=== PATIENT | male | born 1975 | race Two or more races ===

== ENCOUNTER 2024-10-18 12:44 | Outpatient (AMB) | payer OTHER, SELFPAY ==
--- NOTE | 2024-10-18 12:52 | MHC.PC.OV ---
Vital Signs 10/18/24 12:55 Height 5 ft 5.35 in Weight 161 lb 8 oz BMI 26.6 BP 100/62 Blood Pressure Location Lt brachial Position Sitting Pulse 79 Pulse Source Pulse Oximeter Temp 97.3 F Temp Source Temporal Artery Scan Pulse Oximetry (%) 97 Oxygen Delivery Method Room Air Intake Visit Reasons: establish care Intake Note: Patient is a new patient here to establish care for Wellness visit. Transferring care from [facility]. Medical records have been requested and have not received. Outdoor Adventure Guides Required: No Career Technical Counselor: Not Required per policy Accompanied by: Self / Same As Patient Allergies No Known Allergies Allergy (Verified 10/18/24 13:06) Medication List - Last Reconciled 10/18/24 by LOUISE Ayers No Known Home Meds Tobacco use date assessed: 10/18/24 Dental Screening Dental Screen Date: 10/18/24 Did you have a dental visit in the last 12 months?: Yes Did you have a dental problem in the last 6 months where you did not have access to dental care?: No Was dental information given to patient?: Patient has dentist HPI establish care HPI Details Previous PCP: [facility] Last visit:More than five years Last PE: Same Specialist:no OBGYN:n/a Past medical history: UTI, hemmorhoids Medications:n/a Family HX: n/a Problem: The patient is a 49-year-old male presenting for health maintenance with concerns of a urinary tract infection, hemorrhoids, and kidney stones. The patient became aware of a urinary tract infection following a DOT medical assessment. Despite completing a prescribed course of medication, he still experiences a strong urine odor, particularly when holding urine for a long duration. 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 He has a long-standing history of hemorrhoids, which he associates with his driving duties and occasional constipation. The condition has led to discomfort and minor bleeding upon excessive wiping. Lifestyle choices, such as a preference for rice, have contributed to constipation, though he attempts to counter this with increased water and fiber intake. A history of kidney stones involving a lithotripsy procedure was noted. The patient acknowledged consuming inadequate water, sometimes drinking Coca-Cola instead, contributing to the recurrence of kidney stones. PFSH Medical History (Updated 10/23/24 @ 15:23 by LOUISE Ayers) Hemorrhoids UTI (urinary tract infection) Surgical History (Updated 10/18/24 @ 13:01 by CARMITA Tanner) History of lithotripsy History of tooth extraction Family History Other Mental health disorder Social History Housing: Apartment Alcohol intake: current Alcohol intake frequency: a few times a month Patient Tobacco Use Status: Never used Tobacco e-Cigarette/Vaping Use: Never Used Second Hand Smoke Exposure: No Substance Use Type: Marijuana service: No Current occupational status: employed Cognitive needs: No Hearing needs: No Vision needs: Yes (Glasses) Questionnaire PHQ-9 Over the last 2 weeks, how often have you been bothered by any of the following problems? 1. Little interest or pleasure in doing things: not at all 2. Feeling down, depressed, or hopeless: more than half the days 3. Trouble falling or staying asleep, or sleeping too much: several days 4. Feeling tired or having little energy: more than half the days 5. Poor appetite or overeating: several days 6. Feeling bad about yourself - or that you are a failure or have let yourself or your family down: several days 7. Trouble concentrating on things, such as reading the newspaper or watching television: several days 8. Moving or speaking so slowly that other people could have noticed. Or the opposite - being so fidgety or restless that you have been moving around a lot more than usual: not at all 9. Thoughts that you would be better off or of hurting yourself in some way: not at all Total score: 8 Depression Screening Interpretation: Positive Depression Screening Done: Yes 03065 - PHQ-9 Billing: Yes Source: Developed by Drs. Jamar Frazier, Peggy Fowler, Luciano Mitchell and colleagues, with an educational vianey from [email or web address]. Thrive Questionnaire Date Thrive assessed: 10/16/24 I am a: Patient What is your living situation today?: I have a steady place to live Within the past 12 months, did the food you bought not last and you didn't have the money to get more?: Often true Within the past 12 months, did you worry whether your food would run out before you got money to buy more?: Sometimes True Do you have trouble paying for medicines?: No Do you have trouble getting transportation to medical appointments?: No Do you have trouble paying your heating and electricity bill?: No Do you have trouble taking care of your child, family member or friend?: No Do you have trouble with day-to-day activities such as bathing, preparing meals, shopping, managing finances, etc.?: No Are you currently unemployed and looking for a job?: No Are you interested in more education?: No Please select the resources that you would like help with: None Currently or been in a relationship where the following occur: I choose not to answer THRIVE Score: 2 AUDIT C Alcohol Use Questionnaire (AUDIT-C) 1. How often do you have a drink containing alcohol?: 2-4 times a month 2. How many drinks containing alcohol do you have on a typical day when you are drinking?: 3 or 4 3. How often do you have six or more drinks on one occasion?: Never Total Score: 3 KINGSLEY-7 AMB Questionnaire KINGSLEY-7 Date KINGSLEY - 7 assessed: 10/18/24 Feeling nervous, anxious, or on edge: 1 = Several days Not being able to stop or control worryin = Several days Worrying too much about different things: 1 = Several days Trouble relaxin = Several days Being so restless that it is hard to sit still: 1 = Several days Becoming easily annoyed or irritable: 1 = Several days Feeling afraid as if something awful might happen: 1 = Several days Total KINGSLEY-7 score (0-4 normal; 5-9 mild; 10-14 moderate; 15-21 severe): 7 Source: Developed by Drs. Jamar Frazier, Peggy Fowler, Luciano Mitchell and colleagues, with an educational vianey from [employer]. KINGSLEY-7 Assessment Billing KINGSLEY-7 Assessment Tool: KINGSLEY-7 Assessment 69988 Review of Systems Const Denies headache(s) Eyes Denies loss of vision ENT Denies vertigo, Denies dizziness, Denies headache(s) and Denies sore throat Card Denies chest pain, Denies leg edema and Denies lightheadedness Resp Denies cough, Denies hemoptysis and Denies wheezing GI Denies abdominal pain, Denies melena, Reports constipation, Denies diarrhea, Denies vomiting and Reports other (Recurrent hemorrhoids) Denies dysuria, Denies urinary frequency, Denies urinary urgency and Reports other (Strong odor) Musc Denies arthralgias, Denies joint swelling, Denies numbness and Denies tingling Neuro Denies Abnormal speech present, Denies behavioral changes, Denies vertigo, Denies dizziness, Denies headache(s), Denies loss of vision, Denies memory loss, Denies numbness and Denies tingling Psych Denies anxiety, Denies behavioral changes, Denies depression, Denies memory loss and Denies panic attacks Gasper/Lymph Denies easy bleeding and Denies easy bruising Aller/Immun Denies wheezing Physical exam (Primary Care) Vital Signs: Last Vital Signs Temp 97.3 F 10/18/24 12:55 Pulse 79 10/18/24 12:55 BP 100/62 10/18/24 12:55 Pulse Ox 97 10/18/24 12:55 Oxygen Delivery Method Room Air 10/18/24 12:55 BMI result Body Mass Index 26.6 Tobacco/Smoking Status: Tobacco use Status Tobacco use date assessed 10/18/24 10/18/24 13:03 Patient Tobacco Use Status Never used Tobacco 10/18/24 13:03 e-Cigarette/Vaping Use Never Used 10/18/24 13:03 PHQ-9: PHQ-9 Score PHQ-9: Total score 8 10/18/24 13:15 Depression Screening Interpretation: Positive Thrive Assessment: Date of Thrive Assessment Date Thrive assessed 10/16/24 10/18/24 13:03 Currently or been in a relationship where the following occur: I choose not to answer Const General: healthy appearing, no acute distress, alert and awake Nutritional Appearance: well nourished Orientation/consciousness: oriented to person, oriented to place and oriented to time HENMT Ears: TM's normal bilaterally General nose exam: Normal nasal mucous membranes and turbinates present Eyes Conjunctivae: conjunctivae normal Sclerae: sclerae normal Pupils: Equal, round and reactive pupils present Neck Neck: Yes no lymphadenopathy and Yes no JVD Thyroid: Thyroid normal Carotids: no bruits Resp Effort & Inspection: normal respiratory effort and not tachypneic Auscultation: no crackles, no rales, no rhonchi and no wheezes Cardio Rate: regular rate Rhythm: regular rhythm Heart sounds: no murmurs and normal S1 and S2 GI Palpation (GI): Soft to palpation, nontender, no hepatomegaly and no splenomegaly Auscultation: normal bowel sounds Skin General skin exam: no rashes or lesions noted and dry skin Neuro General: oriented to person, oriented to place and oriented to time Cranial nerves: Yes Equal, round and reactive pupils present Speech: No Abnormal speech present Gait exam (Neuro): Normal gait present Motor exam (neuro): no tremor noted Extrem Right upper extremity: full ROM Left upper extremity: full ROM Right lower extremity: full ROM; no edema Left lower extremity: full ROM; no edema Psych Mental Status: mental status grossly normal Speech and movement: Normal speech and movement present Affect: normal affect Attitude: cooperative Thought process: Normal thought process present Coding Level of Care Code New Pt Level 4 (06005) Diagnoses Hemorrhoids, unspecified hemorrhoid type K64.9 Hemorrhoid type: unspecified Urinary tract infection with hematuria, site unspecified N39.0; R31.9 Urinary tract infection type: site unspecified Hematuria presence: with hematuria Abnormal urine odor R82.90 Constipation, unspecified constipation type K59.00 Constipation type: unspecified constipation type Encounter for colorectal cancer screening Z12.11; Z12.12 Additional Codes PHQ-9 - 88482 - PHQ-9 Billing: Yes ([id number]) KINGSLEY-7 Assessment Billing - KINGSLEY-7 Assessment Tool: KINGSLEY-7 Assessment 38471 ([id number]) Time Spent (min) 38 Assessment & Plan Assessment & Plan (1) Hemorrhoids: Code(s): K64.9 - Unspecified hemorrhoids Category: Medical Qualifiers: Hemorrhoid type: unspecified Qualified Code(s): K64.9 - Unspecified hemorrhoids (2) UTI (urinary tract infection): Code(s): N39.0 - Urinary tract infection, site not specified Category: Medical Qualifiers: Urinary tract infection type: site unspecified Hematuria presence: with hematuria Qualified Code(s): N39.0 - Urinary tract infection, site not specified; R31.9 - Hematuria, unspecified (3) Abnormal urine odor: Code(s): R82.90 - Unspecified abnormal findings in urine Category: Medical (4) Constipation: Code(s): K59.00 - Constipation, unspecified Category: Medical Qualifiers: Constipation type: unspecified constipation type Qualified Code(s): K59.00 - Constipation, unspecified (5) Encounter for colorectal cancer screening: Code(s): Z12.11 - Encounter for screening for malignant neoplasm of colon; Z12.12 - Encounter for screening for malignant neoplasm of rectum Category: Medical Plan Our plan for this visit is centered around managing the patient's constipation, hemorrhoids, and kidney health. To confirm the resolution of the urinary infection, a urine analysis will be conducted. I've advised the patient on maintaining proper hydration and avoiding delaying urination to prevent future infections. Managing the hemorrhoids will involve encouraging an increase in water consumption and dietary fiber, alongside using topical treatments as needed to manage symptoms. I discussed the associated risks of high-sugar and caffeinated beverages and advised against regular Coca-Cola consumption to diminish any further risk of kidney stones. For colorectal health evaluation, I placed a referral for a colonoscopy. Progress will be reviewed in six weeks with lab results and reassessment of the current health strategies. Patient was informed and verbally consented to the use of an ambient scribe for clinic note documentation during this visit. Orders: Orders Comprehensive [place]. Panel Fast Today Z00.00 - Encounter for general adult medical examination without abnormal findings TSH reflex Free T4 Today Z00.00 - Encounter for general adult medical examination without abnormal findings UA CC w/rflx Micro + Cult Today Z00.00 - Encounter for general adult medical examination without abnormal findings Vitamin D 25-OH Total Today Z00.00 - Encounter for general adult medical examination without abnormal findings Complete Blood Count Auto Diff Today Z00.00 - Encounter for general adult medical examination without abnormal findings Lipid Panel Today Z00.00 - Encounter for general adult medical examination without abnormal findings Glucose Fasting Today Z00.00 - Encounter for general adult medical examination without abnormal findings Referrals Gastroenterology Referral K59.00 - Constipation, unspecified, K64.9 - Unspecified hemorrhoids, Z12.11 - Encounter for screening for malignant neoplasm of colon, Z12.12 - Encounter for screening for malignant neoplasm of rectum
[2024-10-18 12:55] VITALS: BP 100/62; PULSE 79; TEMP 36.3; O2SAT 97; BMI 26.6
--- OUTSIDE RECORDS SUMMARY | 2024-10-18 12:57 | XMS_ITS | Clinical Summary ---
Author Organization [facility] ity Address [address] [place] [address] Care Team Providers Care Corporate Pilot Name Role Phone Unavailable Primary Care Provider Unavailabl e Social History Tobacco Use Types Packs/Day Years Used Date Smoking Tobacco: Never Assessed Sex and Gender Information Value Date Recorded Sex Assigned at Not on file Legal Sex Male 8:16 PM EST Gender Identity Not on file Sexual Orientation Not on file Plan of Treatment Health Maintenance Due Date Last Done Comments DTaP,Tdap,and Td Vaccines (1 - Tdap) 1995 Hepatitis B Vaccines (1 of 3 - 19+ 3-dose series) 1995 Cholesterol Screening (Lipid Panel) 06/26/2023 Colorectal Cancer Screening: Colonoscopy 06/26/2023 Depression Screening 06/26/2023 HIV Screening 06/26/2023 Hepatitis C Screening 06/26/2023 Social Influencers of Health Screening 06/26/2023 COVID-19 Vaccine (2023-2 5 season) 2024 Influenza Vaccine (Season Ended) 2025 HIB Vaccines Aged Out No longer eligi ble based on patient's age to complete this topic HPV Vaccines Aged Out No longer eligi ble based on patient's age to complete this topic Hepatitis A Vaccines Aged Out No long er eligible based on patient's age to complete this topic IPV Vaccines Aged Out No longer eligi ble based on patient's age to complete this topic MMR Vaccines Aged Out No longer eligi ble based on patient's age to complete this topic Meningococcal ACWY Vaccine Aged Out N o longer eligible based on patient's age to complete this topic Meningococcal B Vaccine Aged Out No l onger eligible based on patient's age to complete this topic Pneumococcal Vaccine: Pediat rics (0 to 5 Years) and At-Risk Patients (6 to 64 Years) Aged Out No longer eligible b ased on patient's age to complete this topic RSV Immunization Patients Un vipul 20 months Aged Out No longer eligible b ased on patient's age to complete this topic Varicella Vaccines Aged Out No longer eligible based on patient's age to complete this topic
== END 2024-10-18 13:40 | disposition home or self-care (01) ==
LOC: HO.HMCH 12:45
DX: K64.9 Unspecified hemorrhoids (principal); N39.0 Urinary tract infection, site not specified; R31.9 Hematuria, unspecified; R82.90 Unspecified abnormal findings in urine; K59.00 Constipation, unspecified; Z12.11 Encounter for screening for malignant neoplasm of colon; Z12.12 Encounter for screening for malignant neoplasm of rectum

== ENCOUNTER → 2024-10-18 12:44 | Outpatient (BNVA) | payer OTHER, SELFPAY | DX: Z76.89 Persons encountering health services in other specified circumstances (principal); K64.9 Unspecified hemorrhoids; N39.0 Urinary tract infection, site not specified; R31.9 Hematuria, unspecified; R82.90 Unspecified abnormal findings in urine; K59.00 Constipation, unspecified | CPT/HCPCS: 96127; 99202 ==

== ENCOUNTER 2024-10-23 08:37 | Outpatient (REF) | payer OTHER, SELFPAY ==
[2024-10-23 08:57] LABS: MANUAL DIFF FLAG NO
[2024-10-23 09:14] LABS: Basophils Absolute Auto 0.1 X10*3/uL (0.0-0.2); Basophils Percent Auto 0.9 % (0-2); Eosinophils Absolute Auto 0.2 X10*3/uL (0.0-0.4); Eosinophils Percent Auto 2.3 % (0-4); Hemoglobin 15.1 g/dl (14.0-18.0); Imm Gran Abs Auto 0.07 X10*3/uL (0.00-0.03); Lymphocytes Absolute Auto 2.3 X10*3/uL (1.2-4.9); Mean Corpuscular HGB Conc 33.6 g/dl (31.0-36.0); Mean Corpuscular Hemoglobin 28.8 pg (27.0-33.0); Mean Corpuscular Volume 85.9 fL (80.0-98.0); Mean Platelet Volume 9.3 fL (9.4-12.4); Monocytes Absolute Auto 0.5 X10*3/uL (0.1-1.2); Monocytes Percent Auto 7.3 % (2-11); Neutrophils Absolute Auto 3.9 x10*3/uL (2.0-8.3); Neutrophils Percent Auto 55.5 % (45-73); Platelet Count 314 X10*3/uL (160-400); Red Blood Count 5.24 X10*6/uL (4.60-5.80); Red Cell Distribution Width 13.4 % (11.0-16.0)
[2024-10-23 09:16] LABS: Appearance Urine Clear; Color Urine Yellow; Glucose Urine UA Negative (Negative); Leukocyte Esterase Urine Moderate (2+) (Negative); Nitrite Urine Positive (Negative); UMIC TRIGGER UACC YES; Urine Blood Negative (Negative); Urine Ketones Negative (Negative); Urine Protein Negative (Neg-Trace)
[2024-10-23 09:18] LABS: Bacteria Urine 2+ (None Seen); Hyaline Casts Urine 0-2 /LPF (0-2); RBC Urine 0-2 /HPF (0-2); Squamous Epithelial Cell Urine 0-2 /HPF (0-2); UACC Culture Trigger YES; WBC Urine 21-50 /HPF (0-5)
[2024-10-23 09:47] LABS: Alanine Aminotransferase 55 U/L (0-40); Albumin Level 4.6 g/dL (3.5-5.0); Alkaline Phosphatase 61 U/L (39-117); Anion Gap 11 (12-20); Aspartate Amino Transferase 26 U/L (5-37); Bilirubin Total 1.2 mg/dL (0.0-1.0); Blood Urea Nitrogen 13 mg/dL (9-16); Calcium 9.6 mg/dL (8.4-10.2); Carbon Dioxide 27 mmol/L (22-29); Chloride 106 mmol/L (96-108); Cholesterol 180 mg/dL (<200); Estimated Glomerular Filt Rate > 60; Glucose Fasting 109 mg/dL (60-99); HDL Cholesterol 45 mg/dL (>40); LDL Cholesterol Calculated 117 mg/dL (<100); Potassium 4.2 mmol/L (3.3-5.1); Sodium 140 mmol/L (135-145); Total Protein 7.5 g/dL (6.5-8.0); Triglycerides 93 mg/dL (<150)
[2024-10-23 10:02] LABS: TSH reflex Free T4 2.34 uIU/mL (0.32-4.0); Vitamin D 25-OH Total 32.2 ng/mL (>30)
== END 2024-10-23 08:38 | disposition home or self-care (01) ==
LOC: HO.LAB 08:37
DX: Z00.00 Encounter for general adult medical examination without abnormal findings (principal)
CPT/HCPCS: 36415; 80053; 80061; 81001; 82306; 84443; 85025; 87086; 87088; 87186

== ENCOUNTER 2024-11-29 08:22 | Outpatient (AMB) | payer OTHER, SELFPAY ==
--- NOTE | 2024-11-29 08:23 | A.OFFPC_ITS ---
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: No Accompanied by: Self / Same As Patient Allergies No Known Allergies Allergy (Verified 11/29/24 08:45) Medication List - Last Reconciled 11/29/24 by LOUISE Ayers nitrofurantoin monohyd/m-cryst 100 mg (Macrobid) 100 mg PO BID 10 days Tobacco use date assessed: 11/29/24 Dental Screening Dental Screen Date: 11/29/24 Did you have a dental visit in the last 12 months?: Yes Did you have a dental problem in the last 6 months where you did not have access to dental care?: No Was dental information given to patient?: Patient has dentist HPI annual physical/lab review HPI Details Dentist: up to date Eye: due for this year Snellen: Right: Left: Corrected vision: yes, glasses STI screening: Colonoscopy: appointment for March will mention to them about his heartburn Pap Smear:n/a PHQ-9: Flu: declines COVID: reports that he did not get any of the covid vaccines Tdap:He is not sure if he got this done or when he had it completed Diet:regular Exercise:he does not workout, reports that he is supposed to start, but not yet reports that he was diagnosed with oral cancer about 4 or 5 years and was being followed [facility] oncology he was told that his cancer was deadly with a 6 month survival rate patient reports that he has not followed up and he just wants to make sure that everything is ok states that he is feeling fine. He doesn't have any oral pain. No lump to the area noted on exam No lymph node left during exam. Will obtain the records and see what was the recommendations and advise reports that he is having burning sensation with he does not eat for awhile reports that he eat greasy foods he gets it as well he only had coffee this morning he is eating close to bedtime occasional alcohol intake 1-2 beers [facility] Medical History (Updated 11/29/24 @ 12:34 by LOUISE Ayers) Hemorrhoids UTI (urinary tract infection) Surgical History History of lithotripsy History of tooth extraction Family History Other Mental health disorder Social History Housing: Apartment Alcohol intake: current Alcohol intake frequency: a few times a month Patient Tobacco Use Status: Never used Tobacco e-Cigarette/Vaping Use: Never Used Second Hand Smoke Exposure: No Substance Use Type: Marijuana service: No Current occupational status: employed Cognitive needs: No Hearing needs: No Vision needs: Yes (Glasses) Questionnaire PHQ-9 Over the last 2 weeks, how often have you been bothered by any of the following problems? 1. Little interest or pleasure in doing things: not at all 2. Feeling down, depressed, or hopeless: more than half the days 3. Trouble falling or staying asleep, or sleeping too much: several days 4. Feeling tired or having little energy: more than half the days 5. Poor appetite or overeating: several days 6. Feeling bad about yourself - or that you are a failure or have let yourself or your family down: several days 7. Trouble concentrating on things, such as reading the newspaper or watching te levision: several days 8. Moving or speaking so slowly that other people could have noticed. Or the opposite - being so fidgety or restless that you have been moving around a lot more than usual: not at all 9. Thoughts that you would be better off or of hurting yourself in some way: not at all Total score: 8 Depression Screening Interpretation: Positive Depression Screening Done: Yes Source: Developed by Drs. Jamar Frazier, Peggy Fowler, Luciano Mitchell and colleagues, with an educational vianey from [employer]. Thrive Questionnaire Date Thrive assessed: 11/29/24 I am a: Patient What is your living situation today?: I have a steady place to live Within the past 12 months, did the food you bought not last and you didn't have the money to get more?: Often true Within the past 12 months, did you worry whether your food would run out before you got money to buy more?: Sometimes True Do you have trouble paying for medicines?: No Do you have trouble getting transportation to medical appointments?: No Do you have trouble paying your heating and electricity bill?: No Do you have trouble taking care of your child, family member or friend?: No Do you have trouble with day-to-day activities such as bathing, preparing meals, shopping, managing finances, etc.?: No Are you currently unemployed and looking for a job?: No Are you interested in more education?: No Please select the resources that you would like help with: None Currently or been in a relationship where the following occur: I choose not to answer THRIVE Score: 2 AUDIT C Alcohol Use Questionnaire (AUDIT-C) 1. How often do you have a drink containing alcohol?: 2-4 times a month 2. How many drinks containing alcohol do you have on a typical day when you are drinking?: 3 or 4 3. How often do you have six or more drinks on one occasion?: Never Total Score: 3 KINGSLEY-7 AMB Questionnaire KINGSLEY-7 Date KINGSLEY - 7 assessed: 11/29/24 Feeling nervous, anxious, or on edge: 1 = Several days Not being able to stop or control worryin = Several days Worrying too much about different things: 1 = Several days Trouble relaxin = Several days Being so restless that it is hard to sit still: 1 = Several days Becoming easily annoyed or irritable: 1 = Several days Feeling afraid as if something awful might happen: 1 = Several days Total KINGSLEY-7 score (0-4 normal; 5-9 mild; 10-14 moderate; 15-21 severe): 7 Source: Developed by Drs. Jamar Frazier, Peggy Fowler, Luciano Mitchell and colleagues, with an educational vianey from [employer]. Review of Systems Const Denies headache(s) Eyes Denies loss of vision ENT Denies vertigo, Denies dizziness, Denies headache(s), Denies sore throat and Reports other (hx of oral cancer) Card Denies chest pain, Denies leg edema and Denies lightheadedness Resp Denies cough, Denies hemoptysis and Denies wheezing GI Denies abdominal pain, Denies melena, Reports constipation (has been improving), Reports heartburn (depending on what he eats), Denies diarrhea and Denies vomiting Denies dysuria, Denies urinary frequency and Denies urinary urgency Musc Denies arthralgias, Denies joint swelling, Denies numbness and Denies tingling Neuro Denies Abnormal speech present, Denies behavioral changes, Denies vertigo, Denies dizziness, Denies headache(s), Denies loss of vision, Denies memory loss, Denies numbness and Denies tingling Psych Denies anxiety, Denies behavioral changes, Denies depression, Denies memory loss and Denies panic attacks Gasper/Lymph Denies easy bleeding and Denies easy bruising Aller/Immun Denies wheezing Physical exam (Primary Care) Vital Signs: Last Vital Signs Temp 98.6 F 11/29/24 08:32 Pulse 62 11/29/24 08:32 Resp 16 11/29/24 08:32 BP 100/64 11/29/24 08:32 Pulse Ox 97 11/29/24 08:32 Oxygen Delivery Method Room Air 11/29/24 08:32 BMI result Body Mass Index 26.9 Tobacco/Smoking Status: Tobacco use Status Tobacco use date assessed 11/29/24 11/29/24 08:40 Patient Tobacco Use Status Never used Tobacco 11/29/24 08:27 e-Cigarette/Vaping Use Never Used 11/29/24 08:27 PHQ-9: PHQ-9 Score PHQ-9: Total score 8 11/29/24 12:41 Depression Screening Interpretation: Positive Thrive Assessment: Date of Thrive Assessment Date Thrive assessed 11/29/24 11/29/24 08:40 Currently or been in a relationship where the following occur: I choose not to answer Const General: healthy appearing, no acute distress, alert and awake Nutritional Appearance: well nourished Orientation/consciousness: oriented to person, oriented to place and oriented to time HENMT Ears: TM's normal bilaterally General nose exam: Normal nasal mucous membranes and turbinates present Mouth: Normal oral and palatal mucosa present Teeth and gingiva: dentition normal Throat: Yes posterior oropharynx normal Eyes Conjunctivae: conjunctivae normal Sclerae: sclerae normal Pupils: Equal, round and reactive pupils present Neck Neck: Yes no lymphadenopathy and Yes no JVD Thyroid: Thyroid normal Carotids: no bruits Resp Effort & Inspection: normal respiratory effort and not tachypneic Auscultation: no crackles, no rales, no rhonchi and no wheezes Cardio Rate: regular rate Rhythm: regular rhythm Heart sounds: no murmurs and normal S1 and S2 GI Palpation (GI): Soft to palpation, nontender, no hepatomegaly and no splenomegaly Auscultation: normal bowel sounds General: Yes no CVA tenderness Back/Spine/Pelvis Back: no CVA tenderness Skin General skin exam: no rashes or lesions noted and dry skin Neuro General: oriented to person, oriented to place and oriented to time Cranial nerves: Yes CN's II-XII intact bilaterally and Yes Equal, round and reactive pupils present Speech: No Abnormal speech present Gait exam (Neuro): Normal gait present Motor exam (neuro): no tremor noted Deep tendon reflexes (DTR's): Right triceps reflex intensity grade: 2+, Left triceps reflex intensity grade: 2+, Rt Biceps (C5, C6): 2+, Left biceps reflex intensity grade: 2+, Right brachioradialis reflex intensity grade: 2+, Left brachioradialis reflex intensity grade: 2+, Right patellar reflex intensity grade: 2+ and Left patellar reflex intensity grade: 2+ Extrem Right upper extremity: full ROM Left upper extremity: full ROM Right lower extremity: full ROM; no edema Left lower extremity: full ROM; no edema Psych Mental Status: mental status grossly normal Speech and movement: Normal speech and movement present Affect: normal affect Attitude: cooperative Thought process: Normal thought process present Results Reviewed Results Reviewed: Laboratory Tests 10/23/24 10/23/24 08:52 08:55 WBC 7.0 RBC 5.24 Hgb 15.1 Hct 45.0 MCV 85.9 MCH 28.8 MCHC 33.6 RDW 13.4 Plt Count 314 MPV 9.3 L Immature Gran % (Auto) 1.0 H Neut % (Auto) 55.5 Lymph % (Auto) 33.0 Sodium 140 Potassium 4.2 Chloride 106 Carbon Dioxide 27 Anion Gap 11 L BUN 13 Creatinine 1.06 Estimated GFR > 60 Fasting Glucose 109 H Calcium 9.6 Total Bilirubin 1.2 H AST 26 ALT 55 H Alkaline Phosphatase 61 Total Protein 7.5 Albumin 4.6 Triglycerides 93 Cholesterol 180 LDL Cholesterol, Calc 117 H HDL Cholesterol 45 25-OH Vitamin D Total 32.2 TSH 2.34 Urine Color Yellow Urine Appearance Clear Urine pH 6.0 Ur Specific [place] 1.020 Urine Protein Negative Urine Glucose (UA) Negative Urine Ketones Negative Urine Blood Negative Urine Nitrite Positive H Ur Leukocyte Esterase Moderate (2+) H Urine RBC 0-2 Urine WBC 21-50 H Ur Squamous Epith Cells 0-2 Urine Bacteria 2+ Hyaline Casts 0-2 Coding Level of Care Code Est Pt Prev Care 40-64y(92771) Diagnoses Annual physical exam Z00.00 Constipation, unspecified constipation type K59.00 Constipation type: unspecified constipation type Hemorrhoids, unspecified hemorrhoid type K64.9 Hemorrhoid type: unspecified Elevated ALT measurement R74.01 Impaired fasting glucose R73.01 Pure hypercholesterolemia E78.00 H/O oral cancer Z85.819 Time Spent (min) 38 Assessment & Plan Assessment & Plan (1) Annual physical exam: Code(s): Z00.00 - Encounter for general adult medical examination without abnormal findings Category: Medical Plan: Preventative guidelines and recent labs reviewed with the patient. He has an upcoming appointment with Gastroenterology. At that appointment he will be discussing colonoscopy along with a possibly EGD due to his recurrent heartburn. The patient does not routinely takes vaccinations and is not interested in be ing vaccinated. (2) Constipation: Code(s): K59.00 - Constipation, unspecified Category: Medical Qualifiers: Constipation type: unspecified constipation type Qualified Code(s): K59.00 - Constipation, unspecified Plan: Recurrent constipation. Reports that this has improved some. He declines MiraLax being added to his regimen,but will increase fluid intake. No abdominal pain on exam. (3) Hemorrhoids: Code(s): K64.9 - Unspecified hemorrhoids Category: Medical Qualifiers: Hemorrhoid type: unspecified Qualified Code(s): K64.9 - Unspecified hemorrhoids Plan: Patient has a history of hemorrhoids. Intermittent rectal bleeding with straining. Patient has a pending GI appointment. Avoid sitting on toilet for an extended period of time. Avoid constipation. Increase fluids and fiber intake. (4) Elevated ALT measurement: Code(s): R74.01 - Elevation of levels of liver transaminase levels Category: Medical Plan: ALT slightly elevated at 55. Limit alcohol/Tylenol use. Encouraged low-calorie diet/exercise/ lose weight (5) Impaired fasting glucose: Code(s): R73.01 - Impaired fasting glucose Category: Medical Plan: Fasting glucose 109 Reinforced low sugar/carbohydrate diet We will recheck blood work in six-month (6) Pure hypercholesterolemia: Code(s): E78.00 - Pure hypercholesterolemia, unspecified Category: Medical Plan: Triglycerides 93, total cholesterol 180, LDL 117, HDL 45 Reinforced low-cholesterol diet Encouraged fish oil or coQ10 supplements We will recheck in six-month (7) H/O oral cancer: Code(s): Z85.819 - Personal history of malignant neoplasm of unspecified site of lip, oral cavity, and pharynx Category: Medical Plan: Patient reports a history of oral cancer. Reports that this was diagnosed roughly about 5 years ago. The lump/mass was removed b removed but it did not received chemotherapy. The patient was following up with [facility] On[facility] and he has stopped going. Reports that he was told that his oral cancer was an aggressive type with a survivor rate of six-month. Reports that he was not concerned because because he has been he has been doing well doing without any issues. However, he would like to look into this to make sure everything is still okay. No lymph node noted on exam. No regrowth of mass noted. We will obtain the record for his oral cancer and see what the recommendations were and advise Plan Patient to follow up in six-month Orders: Orders Lipid Panel 6 Months E78.00 - Pure hypercholesterolemia, unspecified, R73.01 - Impaired fasting glucose, R74.01 - Elevation of levels of liver transaminase levels Comprehensive [place]. Panel Fast 6 Months E78.00 - Pure hypercholesterolemia, unspecified, R73.01 - Impaired fasting glucose, R74.01 - Elevation of levels of liver transaminase levels UA CC w/rflx Micro + Cult 6 Months E78.00 - Pure hypercholesterolemia, unspecified, R73.01 - Impaired fasting glucose, R74.01 - Elevation of levels of liver transaminase levels Hemoglobin A1c 6 Months E78.00 - Pure hypercholesterolemia, unspecified, R73.01 - Impaired fasting glucose, R74.01 - Elevation of levels of liver transaminase levels
--- OUTSIDE RECORDS SUMMARY | 2024-11-29 08:29 | XMS_ITS | Clinical Summary ---
Author Organization [facility] ity Address [address] [place] [address] Care Team Providers Care Emergency Nurse Name Role Phone Unavailable Primary Care Provider [...]
[2024-11-29 08:32] VITALS: BP 100/64; PULSE 62; RESP 16; TEMP 37; O2SAT 97; BMI 26.9
== END 2024-11-29 09:19 | disposition home or self-care (01) ==
LOC: HO.HMCH 08:22
DX: Z00.00 Encounter for general adult medical examination without abnormal findings (principal); K59.00 Constipation, unspecified; K64.9 Unspecified hemorrhoids; R74.01 Elevation of levels of liver transaminase levels; R73.01 Impaired fasting glucose; E78.00 Pure hypercholesterolemia, unspecified; Z85.819 Personal history of malignant neoplasm of unspecified site of lip, oral cavity, and pharynx

== ENCOUNTER → 2024-11-29 08:22 | Outpatient (BNVA) | payer OTHER, SELFPAY | DX: Z00.00 Encounter for general adult medical examination without abnormal findings (principal); K59.00 Constipation, unspecified; K64.9 Unspecified hemorrhoids; R74.01 Elevation of levels of liver transaminase levels; R73.01 Impaired fasting glucose; E78.00 Pure hypercholesterolemia, unspecified; Z85.819 Personal history of malignant neoplasm of unspecified site of lip, oral cavity, and pharynx | CPT/HCPCS: 99396 ==

== ENCOUNTER 2025-02-09 09:03 | Outpatient (REF) | payer OTHER, SELFPAY | END 2025-02-09 09:04 | disposition home or self-care (01) | LOC: HO.LAB 09:03 | PROVIDERS: Visit Provider Physician Assistant | DX: N12 Tubulo-interstitial nephritis, not specified as acute or chronic (principal); N39.0 Urinary tract infection, site not specified; Z13.9 Encounter for screening, unspecified | CPT/HCPCS: 81003; 87086; 87088; 87186; 99212 ==

== ENCOUNTER 2025-02-09 09:03 | Outpatient (AMB) | payer OTHER, SELFPAY ==
[2025-02-09 09:09] VITALS: BP 106/70; PULSE 78; TEMP 36.7; O2SAT 98; BMI 26.9
--- NOTE | 2025-02-09 09:09 | MHC.OFFWIV ---
Intake Vital Signs 02/09/25 09:09 Height 5 ft 5.3 in Weight 163 lb BMI 26.9 BP 106/70 Blood Pressure Location Lt brachial Position Sitting Pulse 78 Pulse Source Pulse Oximeter Temp 98.1 F Temp Source Oral Pulse Oximetry (%) 98 Oxygen Delivery Method Room Air Intake Visit Reasons: ep body pain, headaches Intake Note: pt presents with body aches and chills, nausea and headaches for 2 days, notes fever yesterday Patient Tobacco Use Status: Never used Tobacco Allergies No Known Allergies Allergy (Verified 02/09/25 09:30) Do you need a note to return to daycare/school/sports/work: No HPI HPI Comments History of Present Illness Details History - The patient is a 49-year-old male presenting with fever and symptoms suggestive of a urinary tract infection. - Fever began 2-3 days ago, peaking at 104?F, and was managed with Tylenol. - Symptoms include nausea, headache, body aches, chills, and decreased appetite. - History of recurrent urinary tract infections, 4-5 over the past year, including an ESBL infection. - History of kidney stones, last noted 7-8 years ago. - Current urinary symptoms include pain with urination, dark urine, and possible blood in his urine, hard to tell with dark color of urine. - Denies vomiting and occasionally has back pain, not worse from his baseline. Physical Exam General: Cooperative, healthy appearing, comfortable, no acute distress and well developed Orientation: Patient oriented x3 Limitations: No limitations Head: Normal to inspection Ears: Hearing grossly normal bilaterally Face and sinus: Normal facial exam Neck: Normal visual inspection and Yes full ROM Respiratory: Normal respiratory effort and able to speak in complete sentences. Skin: No rashes or lesions noted Neuro: Patient oriented x3 Back/spine: negative CVA bilaterally [facility] Medical History (Updated 02/09/25 @ 10:24 by Stacy Taylor PA-C) Hemorrhoids UTI (urinary tract infection) Surgical History History of lithotripsy History of tooth extraction Family History Other Mental health disorder Social History Housing: Apartment Alcohol intake: current Alcohol intake frequency: a few times a month Patient Tobacco Use Status: Never used Tobacco e-Cigarette/Vaping Use: Never Used Second Hand Smoke Exposure: No Substance Use Type: Marijuana service: No Current occupational status: employed Cognitive needs: No Hearing needs: No Vision needs: Yes (Glasses) Review of Systems Const All systems reviewed & are unremarkable except as noted in HPI and below Physical Exam Vital Signs: Last Vital Signs Temp 98.1 F 02/09/25 09:09 Pulse 78 02/09/25 09:09 BP 106/70 02/09/25 09:09 Pulse Ox 98 02/09/25 09:09 Oxygen Delivery Method Room Air 02/09/25 09:09 BMI result Body Mass Index 26.9 Results AMB Urinalysis, Automated UA Leukoctes 500 Hansel/uL Last Edit by Rosanne Leary CMA on 02/09/25 10:30 UA Nitrite Positive Last Edit by Rosanne Leary CMA on 02/09/25 10:30 UA Urobilinogen 0.2 mg/dL Last Edit by Rosanne Leary CMA on 02/09/25 10:30 UA Protein 15 mg/dL Last Edit by Rosanne Leary CMA on 02/09/25 10:30 UA pH 6.0 Last Edit by Rosanne Leary CMA on 02/09/25 10:30 UA Blood 10 Hero/uL Last Edit by Rosanne Leary, STEFANIE on 02/09/25 10:30 UA Specific [place] 1.015 Last Edit by Rosanne Leary CMA on 02/09/25 10:30 UA Ketone Positive Last Edit by Rosanne Leary CMA on 02/09/25 10:30 UA Bilirubin 0 mg/dL Last Edit by Rosanne Leary CMA on 02/09/25 10:30 UA Glucose 0 mg/dL Last Edit by Rosanne Leary CMA on 02/09/25 10:30 Results Reviewed Results Reviewed: Laboratory Last Values Urine pH (Auto) 6.0 02/09/25 10:13 Specific [place] (Auto) 1.015 02/09/25 10:13 Urine Protein (Auto) 15 mg/dL 02/09/25 10:13 Glucose (UA)(Auto) 0 mg/dL 02/09/25 10:13 Urine Ketones (Auto) Positive 02/09/25 10:13 Urine Blood (Auto) 10 Hero/uL 02/09/25 10:13 Urine Nitrite (Auto) Positive 02/09/25 10:13 Urine Bilirubin (Auto) 0 mg/dL 02/09/25 10:13 Urine Urobilinogen (Auto) 0.2 mg/dL 02/09/25 10:13 Leukocyte Esterase (Auto) 500 Hansel/uL 02/09/25 10:13 Assessment & Plan Assessment & Plan (1) Pyelonephritis: Code(s): N12 - Tubulo-interstitial nephritis, not specified as acute or chronic Plan: Patient was informed and verbally consented to the use of an ambient scribe for clinic note documentation during this visit. - UA + leuks, + nitrites + blood, + protein and + keytones. - With hx of ESBL UTI, will treat with Macrobid 100mg BID x 10 days as per the culture - Reached out to Dr Arroyo for guidance on treatment, she agreed with plan. - Monitor temperature and continue antipyretics as needed. - Sent message to PCP for Urology referral as 4-5 UTI's over the last year. - Advised if not feeling better in 2-3 days to come back to the [place] or reach out to PCP, may need IV abx. Orders: Orders Urine Culture Today N39.0 - Urinary tract infection, site not specified AMB Urinalysis Automated Today Z13.9 - Encounter for screening, unspecified Medications: New nitrofurantoin monohyd/m-cryst 100 mg (Macrobid) must administer with a meal/food 100 mg PO Q12H 20 caps 0RF 10 days Coding Level of Care Code Est Pt Level 4 (11830) Diagnoses Pyelonephritis N12
--- OUTSIDE RECORDS SUMMARY | 2025-02-09 10:40 | XMS_ITS | Clinical Summary ---
Author Organization [facility] ity Address [address] [place] [address] Care Team Providers Care Hand Stitcher Name Role Phone Unavailable Primary Care Provider [...] Panel) 06/26/2023 Colorectal Cancer Screening: Colonoscopy 06/26/2023 HIV Screening 06/26/2023 Hepatitis C Screening 06/26/2023 Social Influencers of Health Screening 06/26/2023 Depression Screening 06/02/2024 COVID-19 Vaccine (2023-2 5 season) 2025 Influenza Vaccine (#1) 2025 HIB Vaccines Aged Out No longer [...] 5 Years) and At-Risk Patients (6 to 49 Years) Aged Out No longer eligible b ased on patient's age to complete this topic RSV Immunization Patients Un vipul 20 months Aged Out No longer eligible b ased on patient's age to complete this topic Varicella Vaccines Aged Out No longer eligible based on patient's age to complete this topic
== END 2025-02-09 11:41 | disposition home or self-care (01) ==
PROVIDERS: Visit Provider Physician Assistant
DX: N12 Tubulo-interstitial nephritis, not specified as acute or chronic (principal); Z13.9 Encounter for screening, unspecified

== ENCOUNTER 2025-02-14 19:06 | Inpatient (IN) | payer OTHER, SELFPAY ==
--- NOTE | ~2025-02-14 | CT_ITS ---
EXAMINATION: CT ABDOMEN AND PELVIS WITH CONTRAST CLINICAL INFORMATION: ESBL UTI COMPARISON: None available. TECHNIQUE: Multidetector volumetric images were obtained from the superior aspect of the liver through the pubic symphysis following administration 85 mL of Omnipaque 350 intravenous contrast. Sagittal and coronal reformatted images were obtained on the technologist's workstation. Oral contrast: No This CT examination was performed using dose optimization techniques as appropriate, variously including the following: *Automated exposure control *Adjustment of mA and/or kV according to patient size (this includes techniques or standardized protocols for targeted exams where dose is matched to indication/reason for exam; i.e. extremities or head) *Use of iterative reconstruction technique DLP: 331 mGy*cm FINDINGS: LUNG BASES: The visualized lung bases are unremarkable. LIVER, GALLBLADDER, AND BILIARY TREE: Liver demonstrates decreased attenuation uniformly. The gallbladder is unremarkable with no evidence of radiopaque gallstones, gallbladder wall thickening, or obvious pericholecystic inflammatory changes. PANCREAS: Unremarkable. SPLEEN: Unremarkable. ADRENAL GLANDS: Unremarkable. KIDNEYS AND URETERS: Several small low-attenuation lesions in the right kidney are probably simple renal cysts. There is a nonobstructing stone in the upper pole left kidney measuring 7 x 15 mm. There is no hydronephrosis. BLADDER: Unremarkable. GASTROINTESTINAL TRACT: The small and large bowel are unremarkable aside from a few pseudodiverticula in the sigmoid colon. The appendix is unremarkable. ABDOMINAL WALL: No significant hernia is appreciated. LYMPH NODES: Normal. VASCULAR: Unremarkable. PELVIC VISCERA: Unremarkable. OSSEOUS STRUCTURES: Moderate disc space narrowing with endplate osteophytes and vacuum phenomena is noted at L5-S1. CT/CT abdomen pelvis w IV con IMPRESSION: Hepatic steatosis. 7 x 15 mm stone in the upper pole left kidney may represent a staghorn calculus. Moderate degenerative disc disease at L5-S1. Fleischner guidelines were followed. Electronically signed by: Benton Bolton MD 02/16/2025 10:10 AM EDT
[2025-02-14 19:14] VITALS: BP 114/66; PULSE 97; RESP 18; TEMP 36.9; O2SAT 96; BMI 26.3
--- NOTE | 2025-02-14 19:18 | ED_ITS ---
HPI - General Adult General Chief complaint: Recheck/Abnormal Lab/Rx Stated complaint: ? UTI Time Seen by Provider: 02/15/25 00:14 Source: patient, RN notes reviewed and old records reviewed Mode of arrival: ambulatory Limitations: no limitations History of Present Illness ED Provider: Tonie COUCH narrative: 49-year-old male presents for evaluation of ?UTI. The patient was seen at a walk-in clinic 6 days ago for UTI symptoms At that time he was having fevers as high as 104, dark urine, painful urination and foul-smelling odor. He has had multiple UTIs in the last year but he is not sure why. He reports he is not a diabetic. The urgent Care started him on Macrobid because he had a culture in September that was sensitive to ertapenem and Macrobid only. The patient presents again to the ER today after the urgent care told him he needed IV antibiotics She reports his fevers have improved but he still has urinary symptoms and bilateral flank pain Related Data Previous Rx's ?Medication ?Instructions ?Recorded nitrofurantoin 100 mg PO Q12H 10 days #20 c aps 02/09/25 monohydrate/macrocrystals 100 mg capsule (Macrobid) Allergies Allergy/AdvReac Type Severity Reaction Status Date / Time No Known Allergies Allergy Verified 02/14/25 19:16 Review of Systems 2 Constitutional: Constitutional: Reports body ache(s), Reports chills, Reports fever(s) and Denies headache(s) Eyes: Eyes: Denies blurry vision ENT: Denies dizziness, Denies dry mouth and Denies headache(s) Cardiovascular: Cardiovascular: Denies chest pain and Denies dyspnea on exertion Respiratory: Respiratory: Denies cough and Denies dyspnea on exertion Gastrointestinal: Gastrointestinal: Reports abdominal pain Genitourinary: Genitourinary: Denies genital pain, Reports dysuria, Reports flank pain, Denies penile discharge, Denies scrotal swelling and Reports urinary urgency Musculoskeletal: Musculoskeletal: Denies back pain Neurologic: Denies dizziness and Denies headache(s) Psychiatric: Psychiatric: Denies anxiety [facility] Past Medical History Medical History (Updated 02/15/25 @ 00:43 by Keven Schilling) Hemorrhoids UTI (urinary tract infection) Surgical History History of lithotripsy History of tooth extraction Family History Family History Other Mental health disorder Social History Social History Housing: Apartment Alcohol intake: current Alcohol intake frequency: a few times a month Patient Tobacco Use Status: Never used Tobacco Smoked in Last 30 Days: No e-Cigarette/Vaping Use: Never Used Second Hand Smoke Exposure: No Use of substances other than those prescribed or required for medical reasons: No Substance Use Type: Marijuana Advance Directives: No Advance Directives Information Provided: Yes service: No Current occupational status: employed Cognitive needs: No Hearing needs: No Vision needs: Yes (Glasses) Physical Exam ED Vital Signs: Vital Signs - 24 hr 02/14/25 19:14 02/15/25 00:20 Temperature 98.5 F 97.5 F Pulse Rate 97 59 Respiratory Rate 18 16 Blood Pressure 114/66 105/65 Pulse Oximetry 96 97 Oxygen Delivery Method Room Air Room Air BMI result Body Mass Index 26.3 Const General: healthy appearing, comfortable, no acute distress, alert and awake Nutritional Appearance: well nourished Orientation/consciousness: patient oriented x3 HENMT Head: Yes normocephalic and Yes atraumatic Eyes Eyelids: Yes eyelids normal Conjunctivae: conjunctivae normal Sclerae: sclerae normal Corneas: corneas normal Pupils: Equal, round and reactive pupils present EOM: EOMs intact bilaterally Neck Neck: Yes full ROM Resp Effort & Inspection: normal respiratory effort, able to speak in complete sentences and not labored GI Inspection: No distended Palpation (GI): Soft to palpation, not firm, nontender, no guarding and not rigid Skin General skin exam: elasticity normal Neuro General: patient oriented x3 Cranial nerves: Yes Equal, round and reactive pupils present and Yes Bilaterally intact EOM present Cognition (Neuro): normal cognition Extrem Other: Moving all extremities well without any obvious deformities Course Course Course Narrative: This is a rapid medical exam performed by Hanane Tolbert NP: Additional HPI, ROS, PE not included below will be deferred to primary provider. Patient is a 49y/o M referred to the ED from [facility] for IV abx. Recently provided urine specimen, which resulted positive for E. coli susceptible only to ertapenem. Provider spoke with ID who advised patient will need to come to the ED for treatment. Plan:labs, UA Reevaluation(s) Reevaluation #1: Discussed with the hospitalist, Dr. Bills who will admit the patient for IV antibiotics Time: 01:03 Medical Decision Making Medical Decision Making [facility] Narrative: 49-year-old male presents for evaluation of abnormal urine culture that was sensitive to ertapenem only. I am able to see the urine culture from 02/09/2025 which confirms indeterminate to ciprofloxacin and sensitive to ertapenem only. Plan to obtain blood cultures as the patient has had symptoms for several weeks now though he is currently afebrile. We will order a dose of ertapenem. Differential Diagnosis Differential Diagnoses: The differential diagnosis associated with the presentation includes UTI Pyelonephritis Bacteremia ESBL Admission/Observation Consideration of admission/observation: Escalation of care including admission/observation considered Consult Healthcare Provider Management of the patient was discussed with: Hospitalist Lab Data [facility] Lab Attestation statement: I reviewed the patient's lab results. No leukocytosis or significant anemia. Normal platelet count. No significant electrolyte abnormalities warranting intervention. 02/14/25 19:24 02/14/25 19:24 Labs: Lab Results 02/14/25 02/15/25 Range/Units 19:24 00:37 WBC 9.6 (4.8-10.8) X10*3/uL RBC 4.94 (4.60-5.80) X10*6/uL Hgb 14.4 (14.0-18.0) g/dl Hct 41.4 L (42.0-52.0) % MCV 83.8 (80.0-98.0) fL MCH 29.1 (27.0-33.0) pg MCHC 34.8 (31.0-36.0) g/dl RDW 12.8 (11.0-16.0) % Plt Count 321 (160-400) X10*3/uL MPV 9.3 L (9.4-12.4) fL Immature Gran % (Auto) 0.5 H (0.0-0.4) % Neut % (Auto) 56.6 (45-73) % Lymph % (Auto) 32.2 (20-40) % [place] % (Auto) 7.9 (2-11) % Eos % (Auto) 2.0 (0-4) % Baso % (Auto) 0.8 (0-2) % Lymph # (Auto) 3.1 (1.2-4.9) X10*3/uL [place] # (Auto) 0.8 (0.1-1.2) X10*3/uL Eos # (Auto) 0.2 (0.0-0.4) X10*3/uL Baso # (Auto) 0.1 (0.0-0.2) X10*3/uL Abs Immat Gran (auto) 0.05 H (0.00-0.03) X10*3/uL Absolute Neuts (auto) 5.4 (2.0-8.3) x10*3/uL Absolute Nucleated RBC 0.000 (0.0-0.012) X10*3/uL Nucleated RBC % (auto) 0.0 (0.0-0.2) /100WBC Sodium 142 (135-145) mmol/L Potassium 3.9 (3.3-5.1) mmol/L Chloride 109 H (96-108) mmol/L Carbon Dioxide 22 (22-29) mmol/L Anion Gap 15 (12-20) BUN 13 (9-16) mg/dL Creatinine 1.35 (0.5-1.4) mg/dL Estim Creat Clear Calc 58.2 Estimated GFR 56 Random Glucose 102 (60-115) mg/dL Calcium 9.5 (8.4-10.2) mg/dL Total Bilirubin 1.0 (0.0-1.0) mg/dL AST 29 (5-37) U/L ALT 48 H (0-40) U/L Alkaline Phosphatase 72 (39-117) U/L Total Protein 7.5 (6.5-8.0) g/dL Albumin 4.5 (3.5-5.0) g/dL Urine Color Yellow Urine Appearance Clear Urine pH 6.0 (5.0-9.0) Ur Specific [place] 1.025 (1.005-1.025) Urine Protein Trace (Neg-Trace) mg/dL Urine Glucose (UA) Negative (Negative) mg/dL Urine Ketones Negative (Negative) mg/dL Urine Blood Negative (Negative) Urine Nitrite Positive H (Negative) Ur Leukocyte Esterase Moderate (2+) H (Negative) Discharge Plan Discharge Clinical Impression: Urinary tract infection due to extended-spectrum beta lactamase (ESBL) producing Escherichia coli Patient Disposition: Admitted As Inpatient Print Language: Iranian
[2025-02-14 19:28] LABS: MANUAL DIFF FLAG NO
[2025-02-14 19:29] LABS: Hematocrit 41.4 % (42.0-52.0); Hemoglobin 14.4 g/dl (14.0-18.0); Imm Gran Abs Auto 0.05 X10*3/uL (0.00-0.03); Imm Gran Pct Auto 0.5 % (0.0-0.4); Lymphocytes Absolute Auto 3.1 X10*3/uL (1.2-4.9); Mean Corpuscular HGB Conc 34.8 g/dl (31.0-36.0); Mean Corpuscular Hemoglobin 29.1 pg (27.0-33.0); Mean Corpuscular Volume 83.8 fL (80.0-98.0); NRBC Abs Auto 0.000 X10*3/uL (0.0-0.012); NRBC Pct Auto 0.0 /100WBC (0.0-0.2); Platelet Count 321 X10*3/uL (160-400); Red Blood Count 4.94 X10*6/uL (4.60-5.80); White Blood Count 9.6 X10*3/uL (4.8-10.8)
[2025-02-14 19:42] LABS: Alanine Aminotransferase 48 U/L (0-40); Albumin Level 4.5 g/dL (3.5-5.0); Alkaline Phosphatase 72 U/L (39-117); Anion Gap 15 (12-20); Aspartate Amino Transferase 29 U/L (5-37); Blood Urea Nitrogen 13 mg/dL (9-16); Calcium 9.5 mg/dL (8.4-10.2); Carbon Dioxide 22 mmol/L (22-29); Chloride 109 mmol/L (96-108); Creatinine Clr Calc Pharmacy 58.2; Estimated Glomerular Filt Rate 56; Potassium 3.9 mmol/L (3.3-5.1); Sodium 142 mmol/L (135-145); Total Protein 7.5 g/dL (6.5-8.0)
[2025-02-15] VITALS (7 sets, daily range): BP systolic 104–122; BP diastolic 65–80; PULSE 56–82; RESP 16–20; TEMP 36.3–37.1; O2SAT 96–99
--- OUTSIDE RECORDS SUMMARY | 2025-02-15 00:17 | XMS_ITS | Clinical Summary ---
Author Organization [facility] ity Address [address] [place] [address] Care Team Providers Care Welt Edge Rounder Name Role Phone Unavailable Primary Care Provider [...]
[2025-02-15 00:50] LABS: Appearance Urine Clear; Glucose Urine UA Negative (Negative); PH 6.0 (5.0-9.0); Specific Gravity - Urine 1.025 (1.005-1.025); UMIC TRIGGER UACC YES
--- NOTE | 2025-02-15 00:55 | P.HPHOSP_ITS ---
History of Present Illness Date of Service: 02/15/25 Attending physician on admission: Luisa Watts Chief Complaint: Fever Thierno Hurtado is a pleasant 49 years old man with a past medical history significant for nephrolithiasis requiring lithotripsy, hypercholesterolemia and previous UTI is (last on September 2024) presents to the emergency department complaining of multiple symptoms including fever of 101, chills, generalized muscle aches, headache, lower back/pelvic pain, burning sensation upon urinating and foul-smelling urine. He denied blood in urine. Last Friday, he had a urine culture that is positive for E coli susceptible only to ertapenem. He was initially prescribed Macrobid which he has been taking. Urine culture done on July of this year growth and same bacteria that was susceptible to Macrobid to ertapenem. Patient mentioned that about 10 years ago he was diagnosed with nephrolithiasis and underwent lithotripsy; at that time a Webster was placed. He also mentioned that a year ago he was hospitalized at [facility] with UTI. He denied history of diabetes mellitus or any disease other chronic disease. Patient denied hx of cancer to me but according to PCP notes patient has a history of oral cancer status post mass removal but did not receive chemotherapy for which he was failing follow up by Oncology at [facility] and he have stopped going. He does not take medications daily. He denied recent travel history and does not work in healthcare. In the ED, he was found to have normal vital signs. Blood workup showed no leukocytosis or lactic acidosis. Hemoglobin is 14.4 and platelets 321. There are no significant electrolyte imbalances except for mild hyperchloremia. BUN is 13 and creatinine 1.35. Urinalysis today showed nitrate positive, moderate leukocyte steroids, WBC > 50, bacteria 1+ and normal RBC. ED tx: Ertapenem 1 g IV Review of Systems 2 Review of Systems: All 12 systems were reviewed and normal except as noted in HPI. [facility] Medical History (Updated 02/15/25 @ 00:43 by Keven Schilling) Hemorrhoids UTI (urinary tract infection) Family History Other Mental health disorder Surgical History History of lithotripsy History of tooth extraction Social History Housing: Apartment Alcohol intake: current Alcohol intake frequency: a few times a month Patient Tobacco Use Status: Never used Tobacco Smoked in Last 30 Days: No e-Cigarette/Vaping Use: Never Used Second Hand Smoke Exposure: No Use of substances other than those prescribed or required for medical reasons: No Substance Use Type: Marijuana Advance Directives: No Advance Directives Information Provided: Yes Nutrition Risks: No Nutritional Risk service: No Current occupational status: employed Cognitive needs: No Hearing needs: No Vision needs: Yes (Glasses) Meds Allergies Allergy/AdvReac Type Severity Reaction Status Date / Time No Known Allergies Allergy Verified 02/14/25 19:16 Active Medications: Current Medications Acetaminophen (Acetaminophen 325 Mg Tablet) 650 mg PO Q6H PRN PRN Reason: Pain, Mild 1-3,fever,headache Calcium Carbonate (Calcium Carbonate 750 Mg Tab.Chew) 750 mg PO Q4H PRN PRN Reason: Heartburn Magnesium Hydroxide (Milk Of Magnesia 30 Ml Oral.Susp) 30 ml PO DAILY PRN PRN Reason: Constipation Melatonin (Melatonin 3 Mg Tablet) 6 mg PO BEDTIME PRN PRN Reason: Insomnia Sodium Chloride (0.9 % Sodium Chloride Flush 3 Ml Syringe) 3 ml IVFLUSH QSHIFT [facility] Physical Exam 2 Vital Signs and Narrative: Vital Signs: Last Vital Signs Temp 97.5 F 02/15/25 00:20 Pulse 59 02/15/25 00:20 Resp 16 02/15/25 00:20 BP 105/65 02/15/25 00:20 Pulse Ox 97 02/15/25 00:20 O2 Del Method Room Air 02/15/25 00:20 BMI result Body Mass Index 26.3 Constitutional - Awake and Alert, No apparent distress HEENT - PER, EOMI Heart - S1S2, RRR, No edema Lungs - Normal lung expansion, Normal respiratory effort, No respiratory distress, CTA bilaterally Abdomen - NT / ND; +BS; No rebound or guarding Extremities - no calf tenderness bilaterally, no swelling Musculoskeletal - Normal inspection, normal ROM Skin - Warm/Dry Neurological - Alert & oriented x3. Moving all extremities spontaneously. Psychological - Appropriate affect Results Labs 02/15/25 04:44 02/15/25 04:44 Labs: Laboratory Results - last 24 hr 02/14/25 02/15/25 19:24 00:37 MCV 83.8 MCH 29.1 MCHC 34.8 RDW 12.8 Plt Count 321 MPV 9.3 L Immature Gran % (Auto) 0.5 H Neut % (Auto) 56.6 Lymph % (Auto) 32.2 [place] % (Auto) 7.9 Eos % (Auto) 2.0 Baso % (Auto) 0.8 Lymph # (Auto) 3.1 [place] # (Auto) 0.8 Eos # (Auto) 0.2 Baso # (Auto) 0.1 Abs Immat Gran (auto) 0.05 H Absolute Neuts (auto) 5.4 Absolute Nucleated RBC 0.000 Nucleated RBC % (auto) 0.0 Anion Gap 15 Estim Creat Clear Calc 58.2 Estimated GFR 56 Random Glucose 102 Calcium 9.5 Total Bilirubin 1.0 AST 29 ALT 48 H Alkaline Phosphatase 72 Total Protein 7.5 Albumin 4.5 Urine Color Yellow Urine Appearance Clear Urine pH 6.0 Ur Specific [place] 1.025 Urine Protein Trace Urine Glucose (UA) Negative Urine Ketones Negative Urine Blood Negative Urine Nitrite Positive H Ur Leukocyte Esterase Moderate (2+) H Assessment and Plan (1) Urinary tract infection due to extended-spectrum beta lactamase (ESBL) producing Escherichia coli: Status: Acute (2) Recurrent UTI (urinary tract infection): Status: Acute Plan Thierno Hurtado is a 49 y/o man with a PMHx significant for nephrolithiasis and previous UTI is (last on September 2024) presents with: Urinary tract infection due to ESBL. No evidence of sepsis. Recent UC - E.coli susceptible only to ertapenem; treated with macrobid. Continue empiric IV antibiotic therapy with ertapenem (first dose given in ED). Urine and blood culture were repeated tonight -will follow results. ID consult. Hypercholesterolemia. Normal TSH. Low-cholesterol diet reimbursed by PCP. Slight elevation of ALT. F/U as an outpatient. Hx of oral CA. s/p mass/lump removal. Used to f/u with oncology at [facility]. Code status: Full DVT prophylaxis: SCDs, early ambulation Patient will need hospitalization for at least 2 midnights for UTI due to ESBL which require IV antibiotic therapy and evaluation by Infectious Disease specialist This note is constructed using voice recognition software. While every effort has been made to ensure accuracy, in process inspector errors may have been included. Quality Stroke Does the patient have a stroke diagnosis?: No VTE Prior VTE?: No VTE Risk Level:: Medical - moderate - high VTE Device Contraindication: N/A - Device Ordered VTE Drug Contraindication: N/A - Med Ordered
[2025-02-15 01:08] LABS: UACC Culture Trigger YES
[2025-02-15 05:06] LABS: MANUAL DIFF FLAG NO
[2025-02-15 05:08] LABS: Hematocrit 39.0 % (42.0-52.0); Hemoglobin 13.7 g/dl (14.0-18.0); Imm Gran Abs Auto 0.08 X10*3/uL (0.00-0.03); Imm Gran Pct Auto 1.1 % (0.0-0.4); Lymphocytes Absolute Auto 2.8 X10*3/uL (1.2-4.9); Mean Corpuscular HGB Conc 35.1 g/dl (31.0-36.0); Mean Corpuscular Hemoglobin 29.6 pg (27.0-33.0); Mean Corpuscular Volume 84.2 fL (80.0-98.0); NRBC Abs Auto 0.000 X10*3/uL (0.0-0.012); NRBC Pct Auto 0.0 /100WBC (0.0-0.2); Platelet Count 303 X10*3/uL (160-400); Red Blood Count 4.63 X10*6/uL (4.60-5.80); White Blood Count 7.5 X10*3/uL (4.8-10.8)
[2025-02-15 05:21] LABS: Anion Gap 13 (12-20); Blood Urea Nitrogen 14 mg/dL (9-16); Calcium 8.7 mg/dL (8.4-10.2); Carbon Dioxide 21 mmol/L (22-29); Chloride 111 mmol/L (96-108); Creatinine Clr Calc Pharmacy 76.2; Estimated Glomerular Filt Rate > 60; Potassium 3.7 mmol/L (3.3-5.1); Sodium 141 mmol/L (135-145)
[2025-02-15 07:26] LABS: Hemoglobin A1C 137.0965 umol/L; Total Hemoglobin (HGBA1C) 3490.1613 umol/L
[2025-02-15] MEDS: 0.9 % Sodium Chloride Flush 3 ML SYRINGE IVFLUSH ×2 (07:56→20:59)
--- NOTE | 2025-02-15 07:56 | PHA.MEDREC ---
Pharmacy Consult ? Medication Reconciliation Pharmacy has completed the medication reconciliation. Spoke with patient, he didn't know the name of the med but says he only takes a medication for UTI and stopped it yesterday because it wasn't working.
--- NOTE | 2025-02-15 07:58 | PC.NURSE ---
Accepted care of pt. Pt A&O X4 VSS NAD No complaints Pt onlywants coffee no bkfts which he states is usual for him in the am
--- NOTE | 2025-02-15 08:46 | MHC.CM.PN ---
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
--- NOTE | 2025-02-15 16:40 | PM.EVENT ---
Event Note Date of Service: 02/15/25 Event Note: Chart reviewed patient examined agree with H&P and plan as outlined Time Spent With Patient Time: Total time managing care of this patient today ____ minutes.
[2025-02-16 03:43] VITALS: BP 118/59; PULSE 56; RESP 16; TEMP 36.6; O2SAT 96
[2025-02-16 07:21] VITALS: BP 105/72; PULSE 57; RESP 18; TEMP 36; O2SAT 96
[2025-02-16 08:25] LABS: MANUAL DIFF FLAG NO
[2025-02-16 09:08] LABS: Hematocrit 42.8 % (42.0-52.0); Hemoglobin 15.2 g/dl (14.0-18.0); Imm Gran Abs Auto 0.07 X10*3/uL (0.00-0.03); Imm Gran Pct Auto 0.9 % (0.0-0.4); Lymphocytes Absolute Auto 2.2 X10*3/uL (1.2-4.9); Mean Corpuscular HGB Conc 35.5 g/dl (31.0-36.0); Mean Corpuscular Hemoglobin 29.7 pg (27.0-33.0); Mean Corpuscular Volume 83.8 fL (80.0-98.0); NRBC Abs Auto 0.000 X10*3/uL (0.0-0.012); NRBC Pct Auto 0.0 /100WBC (0.0-0.2); Platelet Count 366 X10*3/uL (160-400); Red Blood Count 5.11 X10*6/uL (4.60-5.80); White Blood Count 7.8 X10*3/uL (4.8-10.8)
[2025-02-16 09:27] LABS: Alanine Aminotransferase 46 U/L (0-40); Albumin Level 4.4 g/dL (3.5-5.0); Alkaline Phosphatase 67 U/L (39-117); Anion Gap 11 (12-20); Aspartate Amino Transferase 25 U/L (5-37); Blood Urea Nitrogen 11 mg/dL (9-16); Calcium 9.3 mg/dL (8.4-10.2); Carbon Dioxide 25 mmol/L (22-29); Chloride 110 mmol/L (96-108); Creatinine Clr Calc Pharmacy 87.3; Estimated Glomerular Filt Rate > 60; Potassium 3.7 mmol/L (3.3-5.1); Sodium 142 mmol/L (135-145); Total Protein 7.2 g/dL (6.5-8.0)
[2025-02-16] MEDS: iohexoL 350 MG/ML 100 ML INFUS..BTL IV (09:54)
--- NOTE | 2025-02-16 14:24 | HO.PM.IMPN ---
Subjective Subjective Date of Service: 02/16/25 Interval History: Remains afebrile. Asymptomatic. Cultures negative times 24 hours Review of Systems Denies chest pain Denies shortness of breath Denies nausea vomiting diarrhea Denies fever chills Physical Exam Vital Signs: Vital Signs: Last Vital Signs Temp 96.8 F 02/16/25 07:21 Pulse 57 02/16/25 07:21 Resp 18 02/16/25 07:21 BP 105/72 02/16/25 07:21 Pulse Ox 96 02/16/25 07:21 O2 Del Method Room Air 02/16/25 07:21 BMI result Body Mass Index 26.3 Const: Other: Awake alert no acute distress Resp: Other: Clear to auscultation bilaterally no rales rhonchi or wheezes Cardio: Other: No S4; positive S1-S2; no S3 murmurs rubs or gallops GI: Other: Soft nontender nondistended normoactive bowel sounds Extrem: Other: No edema bilaterally Objective Data Active Medications Acetaminophen (Acetaminophen 325 Mg Tablet) 650 mg PO Q6H PRN PRN Reason: Pain, Mild 1-3,fever,headache Calcium Carbonate (Calcium Carbonate 750 Mg Tab.Chew) 750 mg PO Q4H PRN PRN Reason: Heartburn Magnesium Hydroxide (Milk Of Magnesia 30 Ml Oral.Susp) 30 ml PO DAILY PRN PRN Reason: Constipation Melatonin (Melatonin 3 Mg Tablet) 6 mg PO BEDTIME PRN PRN Reason: Insomnia Meropenem (Meropenem 1 Gm Vial) 1 gm IVPUSH Q[facility]H [facility] Last Admin: 02/16/25 10:34 Dose: 1 gm Documented By: CORINNA Sodium Chloride (0.9 % Sodium Chloride Flush 3 Ml Syringe) 3 ml IVFLUSH QSHIFT [facility] Last Admin: 02/16/25 08:42 Dose: Not Given Documented By: CORINNA Non-Admin Reason: Previously Administered Labs 02/16/25 08:19 02/16/25 08:19 Labs: Laboratory Results - last 24 hr 02/16/25 08:19 MCV 83.8 MCH 29.7 MCHC 35.5 RDW 13.0 Plt Count 366 MPV 9.8 Immature Gran % (Auto) 0.9 H Neut % (Auto) 62.1 Lymph % (Auto) 27.8 [place] % (Auto) 6.8 Eos % (Auto) 1.5 Baso % (Auto) 0.9 Lymph # (Auto) 2.2 [place] # (Auto) 0.5 Eos # (Auto) 0.1 Baso # (Auto) 0.1 Abs Immat Gran (auto) 0.07 H Absolute Neuts (auto) 4.8 Absolute Nucleated RBC 0.000 Nucleated RBC % (auto) 0.0 Anion Gap 11 L Estim Creat Clear Calc 87.3 Estimated GFR > 60 Fasting Glucose 110 H Calcium 9.3 D Total Bilirubin 1.5 H AST 25 ALT 46 H Alkaline Phosphatase 67 Total Protein 7.2 Albumin 4.4 Microbiology Microbiology Results: Microbiology 02/15/25 00:37 Urine Culture - Preliminary Urine clean catch - Clean Catch Midstream Culture in progress. 02/15/25 01:02 Blood Culture - Preliminary Blood - Venous No growth after 24 hours. 02/15/25 00:52 Blood Culture - Preliminary Blood - Venous No growth after 24 hours. Assessment and Plan (1) Urinary tract infection due to extended-spectrum beta lactamase (ESBL) producing Escherichia coli: Status: Acute (2) Pure hypercholesterolemia: Status: Acute Plan Thierno Hurtado is a 49 y/o man with a PMHx significant for nephrolithiasis and previous UTI is (last on September 2024) presents with: Urinary tract infection due to ESBL. -remains afebrile with improvement of symptoms -meropenem (2) -await ID input for duration and route of antibiotics Hypercholesterolemia. -stable and well compensated. Full SCDs, early ambulation Patient will require ongoing hospitalization for IV antibiotics to treat resistant E coli This note is constructed using voice recognition software. While every effort has been made to ensure accuracy, printed circuit boards solder leveler errors may have been included. Quality Stroke Does the patient have a stroke diagnosis?: No VTE Prior VTE?: No VTE Risk Level:: Medical - moderate - high VTE Device Contraindication: N/A - Device Ordered VTE Drug Contraindication: N/A - Med Ordered
[2025-02-16 15:09] VITALS: BP 114/75; PULSE 60; RESP 18; TEMP 36.2; O2SAT 97
--- NOTE | 2025-02-16 15:10 | MHC.CM.PN ---
per rounds pt needs to be seen by infection control ?need for iv antibiotics
[2025-02-16] MEDS: 0.9 % Sodium Chloride Flush 3 ML SYRINGE IVFLUSH (19:06)
[2025-02-16 19:18] VITALS: BP 113/70; PULSE 56; RESP 18; TEMP 36.4; O2SAT 98
[2025-02-17 03:31] VITALS: BP 108/69; PULSE 53; RESP 16; TEMP 36.2; O2SAT 98
[2025-02-17 07:21] VITALS: BP 104/74; PULSE 54; RESP 18; TEMP 36.6; O2SAT 98
--- NOTE | 2025-02-17 14:36 | PM.DS ---
DS: Providers Provider Date of Service: 02/17/25 Date of admission: 02/15/25 00:50 Date of discharge: 02/17/25 Primary care physician: LOUISE Ayers Consults: 02/15/25 00:35 Consult to Infectious Diseases Routine Consulting Provider: [facility] [place] [facility] Reason for consultation: ESBL UTI 02/15/25 00:53 Consult to Infectious Diseases Routine Consulting Provider: [facility] [place] [facility] Reason for consultation: ESBL only susceptible to ertapenem 02/17/25 12:12 Consult to Infectious Diseases Routine Consulting Provider: [facility] [place] [facility] Reason for consultation: EWSBL UTI Has provider been notified: Yes DS: Diagnosis Discharge Diagnosis (1) Urinary tract infection due to extended-spectrum beta lactamase (ESBL) producing Escherichia coli: Status: Acute (2) Pure hypercholesterolemia: Status: Acute DS: Summary Hospital Course Hospital Course: 49 years old man with a past medical history significant for nephrolithiasis requiring lithotripsy, hypercholesterolemia and previous UTI is (last on September 2024) presents to the emergency department complaining of multiple symptoms including fever of 101, chills, generalized muscle aches, headache, lower back/pelvic pain, burning sensation upon urinating and foul-smelling urine. He denied blood in urine. Last Friday, he had a urine culture that is positive for E coli susceptible only to ertapenem. He was initially prescribed Macrobid which he has been taking. Urine culture done on July of this year growth and same bacteria that was susceptible to Macrobid to ertapenem Hospital Course Admitted to floor. Started on meropenem 1 he will follow up with Infectious Disease in the clinic. q.8 hours. CTA abdomen and pelvis demonstrated a 7 x 15 mm stone in the left kidney. Case discussed with ID ; recommend 14 days of ertapenem. Patient will be discharged home and significant other we will administer IV daily. He will follow up with Infectious Disease in the clinic. He will need outpatient urology follow up Time Attestation Discharge Coordination Time (in mins): 35 Quality: Safe Use of Opioids Does Pt have an Active Cancer Diagnosis on the Problem List?: No Quality: Stroke Does the patient have a stroke diagnosis?: No Physical Exam Vital Signs: Vital Signs: Last Vital Signs Temp 97.8 F 02/17/25 07:21 Pulse 54 02/17/25 07:21 Resp 18 02/17/25 07:21 BP 104/74 02/17/25 07:21 Pulse Ox 98 02/17/25 07:21 O2 Del Method Room Air 02/17/25 07:21 BMI result Body Mass Index 26.3 Const: Other: Awake alert no acute distress Resp: Other: Clear to auscultation bilaterally no rales rhonchi or wheezes Cardio: Other: No S4; positive S1-S2; no S3 murmurs rubs or gallops GI: Other: Soft nontender nondistended normoactive bowel sounds Extrem: Other: No edema bilaterally DS: Data Data Completed and Pending Labs on day of discharge: Preliminary micro results at discharge 02/15/25 00:37 Urine Culture - Preliminary Urine clean catch - Clean Catch Midstream Gram negative ursula 02/15/25 01:02 Blood Culture - Preliminary Blood - Venous No growth after 48 hours. 02/15/25 00:52 Blood Culture - Preliminary Blood - Venous No growth after 48 hours. Discharge Plan Discharge Anticipated Discharge Date/Time: 02/17/25 16:23 Patient Disposition: Home Health Service Discharge Diagnosis: ESBL E coli UTI Referrals: Anthony Solano FNP-C [Primary Care Provider, Internal Medicine] - 1 Week Discharge Medications: New ertapenem 1 gram recon soln 1 g IV Q24H 14 Days Discontinued nitrofurantoin monohyd/m-cryst [Macrobid] 100 mg capsule 100 mg PO Q12H 10 Days Qty: 20 0RF Rx Instructions: must administer with a meal/food Discharge Orders: Discharge Order (Routine); Ordered 02/17/25 Ordered By: Ian Orr Diet: Advance to usual diet Activity on Discharge: As tolerated Stand Alone Forms: Patient Portal Discharge page Print Language: Slovak Care Plan Goals: Ertapenem 1 g IV daily times 14 days. Health Concerns: Follow up with your PCP as scheduled. Plan of Treatment: Infectious disease we will follow up in 2 weeks Assessment: See discharge summary Patient Instructions: Urinary Tract Infection in Men (DC), Midline Catheter (DC) Discharge Date/Time: 02/17/25 18:04
[2025-02-17 15:16] VITALS: BP 109/78; PULSE 51; RESP 15; TEMP 36.1; O2SAT 97
--- NOTE | 2025-02-17 17:53 | HO.MIDLINE_ITS ---
Midline Insertion MIDLINE INSERTION Diagnosis: Indication: 2wks ABT Pertinent Labs: Reviewed Technique: Using sterile technique including cap and mask, glove and drape, the right arm was prepped and draped in the usual sterile fashion of full barrier technique with G. Using ultrasound guidance, right basilic vein access was obtained . 20g x 8cm powerglide ST midline catheter was positioned. The procedure was performed in rm 272. Ultrasound was used to document vein patency and for needle entry. A formal ultrasound picture was recorded. Vascular Metal Trim Erector has released the line for use and it is currently dressed with a StatLock, Tegaderm, and CHG disc. Verification has been performed for blood return and line patency. Arm Circumference: 31cm Equipment: BARD PowerGlide ST midline Catheter Type: 20g x8cm Lot #: [id number]
== END 2025-02-17 18:04 | disposition home health service (06) | DRG 463 ==
LOC: HO.ED 02-15 01:04 → HO.EDOVER 02-15 01:06 → HO.S3 02-15 15:19
PROVIDERS: Physician Assistant; Registered Nurse Emergency; Admitting Provider Internal Medicine; Emergency Provider Student in an Organized Health Care Education/Training Program; Visit Provider Hospitalist
DX: N39.0 Urinary tract infection, site not specified (principal); B96.20 Unspecified Escherichia coli [E. coli] as the cause of diseases classified elsewhere; Z16.12 Extended spectrum beta lactamase (ESBL) resistance; E78.00 Pure hypercholesterolemia, unspecified; N20.0 Calculus of kidney; Z87.440 Personal history of urinary (tract) infections; Z87.442 Personal history of urinary calculi
CPT/HCPCS: 36410; 36415; 74177; 80048; 80053; 81001; 83036; 83605; 85025; 87040; 87086; 87088; 87186; 99221; 99285; J1335; J2185; Q9967

== ENCOUNTER 2025-02-15 00:50 | Outpatient (BNV) | payer OTHER, SELFPAY | END 2025-02-16 09:44 | PROVIDERS: Admitting Provider Internal Medicine; Emergency Provider Student in an Organized Health Care Education/Training Program; Visit Provider Radiology Diagnostic Radiology | DX: N20.0 Calculus of kidney (principal) | CPT/HCPCS: 74177 ==

== ENCOUNTER → 2025-02-15 00:50 | Outpatient (BNV) | payer OTHER, SELFPAY | PROVIDERS: Admitting Provider Internal Medicine; Emergency Provider Student in an Organized Health Care Education/Training Program; Visit Provider Internal Medicine | DX: N39.0 Urinary tract infection, site not specified (principal); B96.29 Other Escherichia coli [E. coli] as the cause of diseases classified elsewhere; Z16.12 Extended spectrum beta lactamase (ESBL) resistance | CPT/HCPCS: 99223; 99233; 99239; 99499 ==

== ENCOUNTER 2025-04-19 10:23 | Outpatient (AMB) | payer OTHER, SELFPAY ==
--- NOTE | 2025-04-19 10:29 | A.OFFVIS_ITS ---
Intake Visit Reasons: UTIs Intake Note: New Patient is present for UTI DENY ANY URINARY SX TODAY Urology Rx:none PVR:0 mls Blood Thinners:none Imaging completed: none Seating And Mobility Technologist Required: No Accompanied by: Self / Same As Patient Allergies No Known Allergies Allergy (Verified 04/19/25 10:36) HPI Comments Details: Meagan is a pleasant male. He is a patient of Dr. Solano. He is seen for the following urologic conditions - recurrent UTI - nephrolithiasis Urinary tract infection treated with ertapenem No diabetes ESBL E coli with pyelonephritis 02/24 Current UA shows positive leukocytes but otherwise negative CT scan with 15 mm left upper pole stone Start vitamin-C and methenamine Nephrolithiasis Recurrent Prior procedures including ureteroscopy and ESWL per patient history [facility] Medical History (Updated 04/19/25 @ 11:03 by Juan Gomez MD) Pure hypercholesterolemia Hemorrhoids UTI (urinary tract infection) Surgical History History of lithotripsy History of tooth extraction Family History Other Mental health disorder Social History Household Members: None Housing: Apartment Do you presently have visiting nurse or other home services: No Alcohol intake: current Alcohol intake frequency: a few times a month Patient Tobacco Use Status: Never used Tobacco e-Cigarette/Vaping Use: Never Used Second Hand Smoke Exposure: No Substance Use Type: Marijuana service: No Current occupational status: employed Cognitive needs: No Hearing needs: No Vision needs: Yes (Glasses) Review of Systems Const Denies chills and Denies fever(s) Card Reports no additional complaints and Denies syncope Resp Denies cough GI Denies abdominal pain and Denies heartburn Reports as per HPI and Denies change in libido Neuro Denies syncope Psych Denies change in libido Endo Denies change in libido Physical Exam Const General: cooperative, healthy appearing, comfortable and no acute distress Orientation/consciousness: patient oriented x3 HEENT Face and sinus: Yes normal facial exam Mouth: moist mucous membranes Neck Neck: Yes normal visual inspection, Yes full ROM and Yes trachea midline Chest Chest palpation & inspection: normal inspection of the chest Resp Effort & Inspection: normal respiratory effort, able to speak in complete sentences and no respiratory distress GI Inspection: Yes normal to inspection Back/Spine/Pelvis Cervical Spine: normal cervical lordosis Thoracic/Lumbar Spine: thoracic and lumbar spine normal to inspection Skin General skin exam: no rashes or lesions noted Neuro General: patient oriented x3, gait normal, tone normal and moves all extremities Extrem General: Yes normal to inspection and Yes capillary refill normal Office Procedures Post Void Residual Post Residual Void Post Void Residual (PVR): 0 34643-Qtth Void Residual by ultrasound Results AMB Urinalysis, Automated UA Leukoctes 70 Hansel/uL Last Edit by Betsy Valencia [facility] on 04/19/25 10:47 UA Nitrite Negative Last Edit by Betsy Valencia [facility] on 04/19/25 10:47 UA Urobilinogen 0.2 mg/dL Last Edit by Betsy Valencia [facility] on 04/19/25 10:47 UA Protein 15 mg/dL Last Edit by Betsy Valencia [facility] on 04/19/25 10:47 UA pH 6.5 Last Edit by Betsy Valencia [facility] on 04/19/25 10:47 UA Blood 0 Hero/uL Last Edit by Betsy Valencia [facility] on 04/19/25 10:47 UA Specific [place] 1.015 Last Edit by Betsy Valencia [facility] on 04/19/25 10:4 7 UA Ketone Negative Last Edit by Betsy Valencia [facility] on 04/19/25 10:47 UA Bilirubin 0 mg/dL Last Edit by Betsy Valencia [facility] on 04/19/25 10:47 UA Glucose 0 mg/dL Last Edit by Betsy Valencia [facility] on 04/19/25 10:47 Results Reviewed Results Reviewed: Laboratory Last Values Urine pH (Auto) 6.5 04/19/25 10:45 Specific [place] (Auto) 1.015 04/19/25 10:45 Urine Protein (Auto) 15 mg/dL 04/19/25 10:45 Glucose (UA)(Auto) 0 mg/dL 04/19/25 10:45 Urine Ketones (Auto) Negative 04/19/25 10:45 Urine Blood (Auto) 0 Hero/uL 04/19/25 10:45 Urine Nitrite (Auto) Negative 04/19/25 10:45 Urine Bilirubin (Auto) 0 mg/dL 04/19/25 10:45 Urine Urobilinogen (Auto) 0.2 mg/dL 04/19/25 10:45 Leukocyte Esterase (Auto) 70 Hansel/uL 04/19/25 10:45 Assessment & Plan Assessment & Plan (1) Urinary tract infection due to extended-spectrum beta lactamase (ESBL) producing Escherichia coli: Code(s): N39.0 - Urinary tract infection, site not specified; B96.29 - Other Escherichia coli [E. coli] as the cause of diseases classified elsewhere; Z16.12 - Extended spectrum beta lactamase (ESBL) resistance Category: Medical (2) Nephrolithiasis: Code(s): N20.0 - Calculus of kidney Category: Medical Plan Ureteroscopy We discussed the nature of the decision and reasonable alternatives for performing ureteroscopy. Options such as medical therapy were discussed. Interventions include chemical dissolution, ESWL, ureteroscopy with laser lithotripsy and stent placement, PCNL. The relative uncertainties and benefits related to each alternate procedure were adequately discussed. General surgical risks including, but not limited to - pain, bleeding, infection, myocardial infarction, pulmonary embolus, deep vein thrombosis and cerebrovascular accident which may result in further hospitalization were discussed. Full disclosure of the procedure as well as all major risks, benefits and complications were discussed including but not limited to damage to the urethra, bladder and kidney infection, damage to the ureter, stent migration or malposition, scarring to the renal pelvis, remnant stone fragments, subsequent stone passage with need for secondary procedures. The overall secondary procedure rate is approximately 10-15%. The overall clearance rate is approximately 90-95%. Success of the procedure in the short-term does not necessarily guarantee that long-term success will be maintained. Suitable follow up will need to be maintained. The patient showed understanding of discussion and wishes to proceed with - cystoscopy, retrograde, ureteroscopy, possible lithotripsy/stone basketing and stent on the left side Medications: New ascorbic acid (vitamin C) 1,000 mg PO DAILY 90 tabs 1RF 90 days B96.29 - Other Escherichia coli [E. coli] as the cause of diseases classified elsewhere, N39.0 - Urinary tract infection, site not specified, Z16.12 - Extended spectrum beta lactamase (ESBL) resistance methenamine hippurate 1 g PO DAILY 90 tabs 1RF 90 days B96.29 - Other Escherichia coli [E. coli] as the cause of diseases classified elsewhere, N39.0 - Urinary tract infection, site not specified, Z16.12 - Extended spectrum beta lactamase (ESBL) resistance Patient Instructions: This note is constructed using voice recognition software. While every effort has been made to ensure accuracy drum sealer errors may have been included. Imaging studies, laboratory and physical exam results were discussed and reviewed in detail. No major barriers to patient understanding were identified. An opportunity to ask questions regarding the treatment plan was provided. All questions were answered. The patient expressed understanding and agreement with the above treatment plan. The patient is aware they should contact our office by phone for worsening of their current condition or the appearance of new urologic symptoms. Compliance is encouraged with any medications and followup testing that is ordered. It is a privilege to participate in the urologic care of your patient. If you have any questions or concerns regarding treatment for the above conditions, or other urologic issues, please do not hesitate to contact me. The office telephone contact is [phone]. Sincerely, Dr Juan Gomez MD, [facility] - Urology Compassionate Specialist Care for the Genitourinary System Coding Level of Care Code New Pt Level 4 (16393) Diagnoses Urinary tract infection due to extended-spectrum beta lactamase (ESBL) producing Escherichia coli N39.0; B96.29; Z16.12 Nephrolithiasis N20.0 CPT Codes Post Residual Void - PVR CPT Code: 93518-Xitp Void Residual by ultrasound ([id number])
== END 2025-04-19 11:06 | disposition home or self-care (01) ==
LOC: HO.HUSH 10:23
PROVIDERS: Visit Provider Urology
DX: N39.0 Urinary tract infection, site not specified (principal); B96.29 Other Escherichia coli [E. coli] as the cause of diseases classified elsewhere; Z16.12 Extended spectrum beta lactamase (ESBL) resistance; N20.0 Calculus of kidney
CPT/HCPCS: 99204

== ENCOUNTER → 2025-04-19 10:23 | Outpatient (BNVA) | payer OTHER, SELFPAY | PROVIDERS: Visit Provider Urology | DX: N39.0 Urinary tract infection, site not specified (principal); B96.29 Other Escherichia coli [E. coli] as the cause of diseases classified elsewhere; Z16.12 Extended spectrum beta lactamase (ESBL) resistance; N20.0 Calculus of kidney | CPT/HCPCS: 51798; 99202 ==

== ENCOUNTER 2025-05-06 09:40 | Outpatient (AMB) | payer OTHER, SELFPAY ==
[2025-05-06 09:53] VITALS: BP 120/82; PULSE 80; O2SAT 98; BMI 25.6
--- NOTE | 2025-05-06 09:53 | MHC.OFFVIS ---
Vital Signs 05/06/25 09:53 Height 5 ft 5 in Weight 154 lb BMI 25.6 BP 120/82 Blood Pressure Location Rt brachial Position Sitting Pulse 80 Pulse Source Pulse Oximeter Pulse Oximetry (%) 98 Oxygen Delivery Method Room Air Intake Visit Reasons: colo screening/ hemorrhoids/Constipation Intake Note: New pt for initial eval of constipation + hemorrhoid concerns. Initial colo screening. CC; C/O hx of hemorrhoids and constipation. Pt states that he has not experienced these sx since being discharged from the hospital after receiving tx for an infection. [place] [facility] [place] denies any pertinent surgical or FMHx. Band Machine Operator Required: No Band Machine Operator Services: Band Machine Operator Offered & Declined Accompanied by: Self / Same As Patient Allergies No Known Allergies Allergy (Verified 05/06/25 10:07) HPI HPI colo screening/ hemorrhoids/Constipation: Details: 49 year old? male here today for pre colonoscopy screening.? Patient was sent to us by his PCP.? This is his first colonoscopy screening.? Patient denies any gastrointestinal symptoms in the past or at present.? Denies any family history of CRC.? Patient was admitted in January for UTI. He is following with Urology on regular basis. Denies history of difficulty with sedation or anesthesia in the past.? Negative for history of sleep apnea.? Denies any history of cardiac, renal, pulmonary, or hepatic disease.?? No history of infectious? diseases like hepatitis A, B, C, HIV or tuberculosis.? Patient is not on any anticoagulation [facility] Medical History Pure hypercholesterolemia Hemorrhoids UTI (urinary tract infection) Surgical History History of lithotripsy History of tooth extraction Family History Other Mental health disorder Social History Household Members: None Housing: Apartment Do you presently have visiting nurse or other home services: No Alcohol intake: current Alcohol intake frequency: a few times a month Patient Tobacco Use Status: Never used Tobacco e-Cigarette/Vaping Use: Never Used Second Hand Smoke Exposure: No Substance Use Type: Marijuana service: No Current occupational status: employed Cognitive needs: No Hearing needs: No Vision needs: Yes (Glasses) Review of Systems Const Denies weight gain and Denies weight loss ENT Reports no additional complaints, Denies dysphagia and Denies odynophagia Card Reports no additional complaints Resp Reports no additional complaints GI Denies abdominal pain, Denies belching, Denies melena, Denies bloating, Denies change in bowel habits, Denies dysphagia, Denies excessive flatus, Denies dyspepsia, Denies heartburn, Denies diarrhea, Denies loose stools, Denies nausea, Denies odynophagia and Denies vomiting Reports no additional complaints Musc Reports no additional complaints Neuro Reports no additional complaints Psych Reports no additional complaints Endo Reports no additional complaints Physical Exam Vital Signs: Last Vital Signs Pulse 80 05/06/25 09:53 BP 120/82 05/06/25 09:53 Pulse Ox 98 05/06/25 09:53 Oxygen Delivery Method Room Air 05/06/25 09:53 BMI result Body Mass Index 25.6 Const General: healthy appearing, no acute distress and well developed Nutritional Appearance: well nourished Orientation/consciousness: patient oriented x3 Resp Effort & Inspection: normal respiratory effort, able to speak in complete sentences, no tracheal deviation and symmetric chest movement Auscultation: clear to auscultation bilaterally Cardio Rate: regular rate GI Inspection: Yes normal to inspection and No distended Palpation (GI): Soft to palpation, not firm, nontender and No hepatosplenomegaly present Auscultation: normal bowel sounds General: Yes no CVA tenderness Back/Spine/Pelvis Back: no CVA tenderness Skin General skin exam: elasticity normal, turgor normal and dry skin Neuro General: patient oriented x3 Psych Appearance: grossly normal Mental Status: mental status grossly normal Assessment & Plan Assessment & Plan (1) Encounter for colorectal cancer screening: Code(s): Z12.11 - Encounter for screening for malignant neoplasm of colon; Z12.12 - Encounter for screening for malignant neoplasm of rectum Category: Medical Plan Patient denies any GI, cardiac or respiratory symptoms.? Denies any issues with anesthesia in the past.? Denies any history of sleep apnea.? No history infectious diseases in the past or present.? Not on any anticoagulation therapy.? No family or personal history of colon cancer or polyps.? Patient denies melena, hematochezia, unintentional weight loss or ribbon like stools.? Discussed at length the pre-procedure,? prep, diet & medications as well as what to expect prior, during and after the procedure.?? Stressed the importance of good bowel prep.? Recommended the use of Vaseline or Calmoseptine OTC & baby wipes with bowel movements to promote comfort.? ?Patient verbalizes understanding and agrees to plan of care.? He was given the opportunity to ask questions and all questions answered.? We will see him after the procedure.? Orders: Referrals GI Procedure Notification Z12.11 - Encounter for screening for malignant neoplasm of colon Medications: New bisacodyl (Dulcolax (bisacodyl)) take 4 tabs at noon the day before your colonoscopy 20 mg (4 x 5 mg) PO ONCE 4 tabs 0RF constipation 1 day Z12.11 - Encounter for screening for malignant neoplasm of colon polyethylene glycol 3350 (Miralax) As directed by gastroenterology department at [facility] 238 grams PO ONCE 238 grams 0RF Z12.11 - Encounter for screening for malignant neoplasm of colon Coding Level of Care Code New Pt Level 3 (25156) Diagnoses Encounter for colorectal cancer screening Z12.11; Z12.12 Time Spent (min) 40 Comment 30 minutes spent with patient and additional 10 minutes spent reviewing his records
== END 2025-05-06 10:25 | disposition home or self-care (01) ==
LOC: HO.HGI 09:41
PROVIDERS: Visit Provider Nurse Practitioner Family
DX: Z01.818 Encounter for other preprocedural examination (principal); Z12.11 Encounter for screening for malignant neoplasm of colon
CPT/HCPCS: 99203

== ENCOUNTER → 2025-05-06 09:40 | Outpatient (BNVA) | payer OTHER, SELFPAY | PROVIDERS: Visit Provider Nurse Practitioner Family | DX: Z12.11 Encounter for screening for malignant neoplasm of colon (principal); Z12.12 Encounter for screening for malignant neoplasm of rectum | CPT/HCPCS: 99202 ==

== ENCOUNTER 2025-05-20 09:40 | Outpatient (AMB) | payer OTHER, SELFPAY ==
[2025-05-20 09:47] VITALS: BP 102/66; PULSE 91; TEMP 37.1; O2SAT 99; BMI 26.1
--- NOTE | 2025-05-20 09:47 | AM.OFFWIN_ITS ---
Intake Vital Signs 05/20/25 09:47 Height 5 ft 5 in Weight 157 lb BMI 26.1 BP 102/66 Blood Pressure Location Lt brachial Position Sitting Pulse 91 Pulse Source Pulse Oximeter Temp 98.7 F Temp Source Oral Pulse Oximetry (%) 99 Intake Visit Reasons: eP fever last 2 nights pain in legs Intake Note: pt presents with fevers the last two nights >100, pain with pain to bilateral legs from hips to knees Patient Tobacco Use Status: Never used Tobacco Allergies No Known Allergies Allergy (Verified 05/20/25 09:52) Do you need a note to return to daycare/school/sports/work: No HPI HPI Comments History of Present Illness Details History - The patient is a 50-year-old male pres enting with fever, leg pain, and urinary symptoms. - He reports fever over 100?F and associ ated pain in his legs, which is typical for him when febrile. - Urinary symptoms include dysuria and a n intermittent stream, but he denies increased frequency or hematuria. - He also endorses vomiting. - He has a history of recurrent urinary tract infections, including a significant E. coli infection in January that was only sensitive to IV ertapenem and required hospitalization. It was indeterminate to Cipro. - The patient is sexually active in a mo nogamous relationship for many years with no known STD risk but consented to testing for thoroughness. - He denies any abnormal penile discharg e, changes in bowel movements, or hip/groin pain. Review of Systems - Constitutional: Reports fever over 100 ?F. - Genitourinary: Reports dysuria and an intermittent urinary stream. - Denies hematuria, increased urinary fr equency, and penile discharge. - Musculoskeletal: Reports myalgia in hi s legs and thighs. - Denies hip or groin pain. - Gastrointestinal: Reports emesis. - Denies abnormal bowel movements. All systems reviewed and are unremarkable except as noted in HPI Physical Exam General: Cooperative, healthy appearing, comfortable, no acute distress and well developed Orientation: Patient oriented x3 Limitations: No limitations Head: Normal to inspection Ears: Hearing grossly normal bilaterally Face and sinus: Normal facial exam Neck: Normal visual inspection and Yes full ROM Respiratory: Normal respiratory effort and able to speak in complete sentences. Skin: No rashes or lesions noted Neuro: Patient oriented x3 [facility] Medical History Pure hypercholesterolemia Hemorrhoids UTI (urinary tract infection) Surgical History History of lithotripsy History of tooth extraction Family History Other Mental health disorder Social History Household Members: None Housing: Apartment Do you presently have visiting nurse or other home services: No Alcohol intake: current Alcohol intake frequency: a few times a month Patient Tobacco Use Status: Never used Tobacco e-Cigarette/Vaping Use: Never Used Second Hand Smoke Exposure: No Substance Use Type: Marijuana service: No Current occupational status: employed Cognitive needs: No Hearing needs: No Vision needs: Yes (Glasses) Physical Exam Vital Signs: Last Vital Signs Temp 98.7 F 05/20/25 09:47 Pulse 91 05/20/25 09:47 BP 102/66 05/20/25 09:47 Pulse Ox 99 05/20/25 09:47 BMI result Body Mass Index 26.1 Assessment & Plan Assessment & Plan (1) UTI (urinary tract infection): Code(s): N39.0 - Urinary tract infection, site not specified Qualifiers: Urinary tract infection type: site unspecified Hematuria presence: with hematuria Qualified Code(s): N39.0 - Urinary tract infection, site not specified; R31.9 - Hematuria, unspecified Plan: - UA with Leuks and pos nitrites. VSS, pt well appearing however is having fevers and nausea. - A urine culture has been sent for sensitivity testing to guide antibiotic therapy, given the patient's history of a resistant E. coli infection. - Urine will also be tested for STDs as a precautionary measure. - Prescribed ciprofloxacin to start empirically while awaiting culture results, as it was an indeterminate option for a previous infection. Reached out to MA for guidance, pending answer. - Will start on 500mg Cipro BID x 7d. - Prescribed an anti-nausea medication to manage emesis. - The patient was advised to take Tylenol for fever and to maintain adequate fluid intake. - The patient will be contacted with the culture results in 1-2 days; if IV antibiotics such as ertapenem are required, he will be instructed to go to the hospital. - The patient was instructed to go to the emergency room at [place] if his symp toms worsen over the weekend, as his records will be available there. - Reached out to [place] [facility] [place] to direct culture results to Dr Jaymie GARCIA this weekend (he is stations superintendent) to expedite patients care. Patient was informed and verbally consented to the use of an ambient scribe for clinic note documentation during this visit. Orders: Orders Urine Culture Today N39.0 - Urinary tract infection, site not specified CT NG by PCR Urine Today R30.0 - Dysuria Medications: New ondansetron 4 mg PO Q8H PRN 10 tabs 0RF nausea and vomiting ciprofloxacin HCl 500 mg (2 x 250 mg) PO Q12H 28 tabs 0RF 7 days Coding Level of Care Code Est Pt Level 4 (11540) Diagnoses Urinary tract infection with hematuria, site unspecified N39.0; R31.9 Urinary tract infection type: site unspecified Hematuria presence: with hematuria
--- OUTSIDE RECORDS SUMMARY | 2025-05-20 10:29 | XMS_ITS | Clinical Summary ---
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 Name Role Phone Unavailable Primary Care Provider Unavailabl e Social History Tobacco Use Types Packs/Day Years Used Date Smoking Tobacco: Never Assessed Sex and Gender Information Value Date Recorded Sex Assigned at Not on file Legal Sex Male 8:16 PM EST Gender Identity Not on file Sexual Orientation Not on file Plan of Treatment Health Maintenance Due Date Last Done Comments Colorectal Cancer Screening: Colonoscopy 1976 DTaP,Tdap,and Td Vaccines (1 - Tdap) 1995 Hepatitis B Vaccines (1 of 3 - 19+ 3-dose series) 1995 Cholesterol Screening (Lipid Panel) 06/26/2023 HIV Screening 06/26/2023 Hepatitis C Screening 06/26/2023 Social Influencers of Health Screening 06/26/2023 Depression Screening 06/02/2024 COVID-19 Vaccine (1 - 2024-2 6 season) 2025 Influenza Vaccine (#1) 2025 RSV Immunization Adult Patie nts (1 - 1-dose 75+ series) 2051 HIB Vaccines Aged Out No longer eligi [...]
== END 2025-05-20 10:58 | disposition home or self-care (01) ==
PROVIDERS: Visit Provider Physician Assistant
DX: N39.0 Urinary tract infection, site not specified (principal); R31.9 Hematuria, unspecified; Z13.9 Encounter for screening, unspecified

== ENCOUNTER 2025-05-20 09:40 | Outpatient (REF) | payer OTHER, SELFPAY ==
[2025-05-21 01:46] LABS: CT PCR Urine NOT DETECTED (Not Detect.); NG PCR Urine NOT DETECTED (Not Detect.)
== END 2025-05-20 09:41 | disposition home or self-care (01) ==
LOC: HO.LAB 09:40
PROVIDERS: Physician Assistant
DX: N39.0 Urinary tract infection, site not specified (principal); R31.9 Hematuria, unspecified; R30.0 Dysuria; Z20.2 Contact with and (suspected) exposure to infections with a predominantly sexual mode of transmission
CPT/HCPCS: 81003; 87086; 87186; 87491; 87591; 99212

== ENCOUNTER 2025-05-20 16:12 | Inpatient (IN) | payer OTHER, SELFPAY ==
--- NOTE | ~2025-05-20 | US_ITS ---
CLINICAL HISTORY: L flank pain, dysuria US Renal Comparison: None provided Findings: Right kidney normal size and echotexture, 11.4 x 5.7 x 5.1 cm length. Interpolar region nonobstructing hyperechoic focus, 0.5 x 0.5 x 0.5 cm. Left kidney normal size and echotexture, 11 x 5.1 x 4.4 cm length. Upper pole cortical anechoic focus with posterior acoustic enhancement, 0.6 x 0.4 x 0.6 cm; simple cysts. No collecting system dilatation of either kidney. Normal color Doppler. The bladder is not imaged on present examination. IMPRESSION: Right interpolar region nonobstructing subcentimeter nephroliths. This document has been electronically signed by: Matthias Giron MD on 05/20/2025 18:28:28
[2025-05-20 16:23] VITALS: BP 123/79; PULSE 76; RESP 18; TEMP 36.9; O2SAT 98; BMI 25.6
--- NOTE | 2025-05-20 16:23 | ED_ITS ---
HPI - Fever General Chief Complaint: General Medical Stated Complaint: Fever, body aches-went to urgent care this morning Time Seen by Provider: 05/20/25 20:28 History of Present Illness ED Provider: PJ HPI Narrative: 50-year-old male with a flank pain. History of kidney stones. Related Data Previous Rx's ?Medication ?Instructions ?Recorded ascorbic acid (vitamin C) 1,000 mg 1,000 mg PO DAILY 9 0 days #90 tabs 04/19/25 tablet ondansetron 4 mg disintegrating 4 mg PO Q8H PRN nausea and 05/20/25 tablet vomiting #10 tabs ertapenem 1 gram solution for 1 g IV DAILY 7 days 05/03 07/27 injection ketorolac 10 mg tablet 10 mg PO Q6H PRN Pain, 05/23 Moderate(Pain Scale 4-6) #15 tabs tamsulosin 0.4 mg capsule 0.4 mg PO BEDTIME 10 days #1 0 caps 05/23/25 Allergies Allergy/AdvReac Type Severity Reaction Status Date / Time No Known Allergies Allergy Verified 05/20/25 16:26 [facility] Past Medical History Medical History Pure hypercholesterolemia Hemorrhoids UTI (urinary tract infection) Surgical History History of lithotripsy History of tooth extraction Family History Family History Other Mental health disorder Social History Social History Household Members: Spouse Housing: House Do you presently have visiting nurse or other home services: No Alcohol intake: current Alcohol intake frequency: does not drink Patient Tobacco Use Status: Never used Tobacco e-Cigarette/Vaping Use: Never Used Second Hand Smoke Exposure: No Substance Use Type: Marijuana service: No Current occupational status: employed Cognitive needs: No Hearing needs: No Vision needs: Yes (Glasses) Physical Exam 2 Exam: Exam: EXAM: Gen: Alert, awake, well appearing, well hydrated. Head: Atraumatic Eyes: Anicteric, Normal conjunctiva. ENT: Moist mucosa, no pallor. ? Neck: Supple. Skin: ?No observable rash or bruising on exposed or examined skin Respiratory: Breathing comfortably, No distress.Clear to auscultation bilaterally, symmetric chest expansion, No wheeze, rales, ronchi. Cardiovascular: Regular rate and rhythm. No murmurs or rub. Well perfused periphery, warm extremities. No edema. ? Abdominal: No focal tenderness. Soft, no objective distension. No palpable masses or obvious organomegaly. ?No guarding, no rebound tenderness or other peritoneal findings. : No flank tenderness. Neuro: Alert. Gross movement of all extremities intact. ? Psych: Calm. Cooperative. MSK: No grossly visible deformity. Vital signs: See flowsheet Vital Signs: Vital Signs: Last Vital Signs Temp 98.2 F 05/23/25 15:52 Pulse 67 05/23/25 15:52 Resp 18 05/23/25 15:52 BP 113/72 05/23/25 15:52 Pulse Ox 99 05/23/25 15:52 O2 Del Method Room Air 05/23/25 15:52 BMI result Body Mass Index 25.6 Course Course Course Narrative: This is a Rapid Medical Exam performed in triage by Maureen Hernandez PA-C. Full HPI, ROS and PE to be performed by primary ED provider. 50 yo M w/pmhx HLD, pyelonephritis presenting to the ED c/o fever, b/l leg pain, difficulty urinating and back pain x 2 days. also reports dysuria PE: +L CVAT, abdomen soft & nontender Plan: labs, UA, ultrasound Medications Administered Discontinued Medications Generic Name Dose Route Start Last Admin Trade Name Freq PRN Reason Stop Dose Admin Enoxaparin Sodium 40 mg 05/20/25 22:00 05/22/25 21:57 Enoxaparin Sodium 40 Mg/0.4 Ml Syringe SUBCUT 40 mg Q24H ERAN Administration Ertapenem 1 gm/ Sodium 50 mls @ 100 mls/hr 05/20/25 21:08 05/21/25 00:18 Chloride IV 05/20/25 21:37 Infused ONCE ONE Infusion Lactated Ringer's 1,000 mls @ 100 mls/hr 05/21/25 12:15 05/23/25 07:52 Lr IVCONT Infused .Q10H ERAN Infusion Ertapenem 1 gm/ Sodium 50 mls @ 100 mls/hr 05/23/25 11:01 05/23/25 12:59 Chloride IV 05/23/25 11:30 Infused ONCE ONE Infusion Ibuprofen 800 mg 05/20/25 20:31 05/20/25 21:26 Ibuprofen 800 Mg Tablet PO 05/20/25 20:32 800 mg ONCE ONE Administration Levofloxacin 500 mg 05/20/25 20:31 05/20/25 21:07 Levofloxacin 500 Mg Tablet PO 05/20/25 20:32 Not Given ONCE ONE Meropenem 500 mg 05/21/25 20:00 05/23/25 04:07 Meropenem 500 Mg Vial IVPUSH 500 mg Q8H ERAN Administration Sodium Chloride 3 ml 05/21/25 00:00 05/23/25 17:10 0.9 % Sodium Chloride Flush 3 Ml Syringe IVFLUSH Not Given QSHIFT ERAN Sodium Chloride 3 ml 05/23/25 14:48 05/23/25 17:10 0.9 % Sodium Chloride Flush 3 Ml Syringe IVFLUSH 05/23/25 14:49 3 ml ONCE ONE Administration Tamsulosin HCl 0.4 mg 05/21/25 21:00 05/22/25 21:57 Tamsulosin Hcl 0.4 Mg Capsule PO 0.4 mg BEDTIME ERAN Administration Medical Decision Making Medical Decision Making MDM Narrative: Medical Decision Makin-year-old male with flank pain. Urinalysis suggests UTI. No obstructing kidney stones or uropathy. Labs reassuring NEO or electrolyte abnormality. White count on nearly 17 but no tachycardia hypotension or signs of sepsis. Initial plan was for DC with oral quinolone However, consulted with hospitalist, although patient hemodynamically stable, he does have a significant flank pain. Suggestion on urinalysis of UTI without obstructing stone or uropathy and concerning previous urine culture of ESBL requiring ertapenem. So we decided together to admit for carbapenem, hemodynamics remain stable, lactate not elevated. Admit for pyelonephritis. Preliminary Favored Differential Diagnosis: Musculoskeletal pain, kidney stone, pyelonephritis among additional considered etiologies Testing Interpreted Independently: ?See below for details Radiology or Lab testing Results Reviewed: ?See below for details Consults: ?Case discussed with hospital staff through review of previous urine cultures showing ESBL. Patient was on ertapenem, IV consultation and reviewed Independent Historians/External Chart Reviews: ?See below for details Social Determinants of Health Impacting MDM/Planning: ?See below for details Lab Data 05/21/25 06:12 05/21/25 06:11 Labs: Lab Results 05/20/25 05/20/25 Range/Units 17:22 17:26 WBC 16.9 H (4.8-10.8) X10*3/uL RBC 5.01 (4.60-5.80) X10*6/uL Hgb 14.6 (14.0-18.0) g/dl Hct 43.4 (42.0-52.0) % MCV 86.6 (80.0-98.0) fL MCH 29.1 (27.0-33.0) pg MCHC 33.6 (31.0-36.0) g/dl RDW 13.1 (11.0-16.0) % Plt Count 320 (160-400) X10*3/uL MPV 9.8 (9.4-12.4) fL Immature Gran % (Auto) 0.5 H (0.0-0.4) % Neut % (Auto) 75.2 H (45-73) % Lymph % (Auto) 13.5 L (20-40) % [place] % (Auto) 9.5 (2-11) % Eos % (Auto) 0.8 (0-4) % Baso % (Auto) 0.5 (0-2) % Lymph # (Auto) 2.3 (1.2-4.9) X10*3/uL [place] # (Auto) 1.6 H (0.1-1.2) X10*3/uL Eos # (Auto) 0.1 (0.0-0.4) X10*3/uL Baso # (Auto) 0.1 (0.0-0.2) X10*3/uL Abs Immat Gran (auto) 0.08 H (0.00-0.03) X10*3/uL Absolute Neuts (auto) 12.7 H (2.0-8.3) x10*3/uL Absolute Nucleated RBC 0.000 (0.0-0.012) X10*3/uL Nucleated RBC % (auto) 0.0 (0.0-0.2) /100WBC Smear Tech's Comments VERIFIED Sodium 140 (135-145) mmol/L Potassium 3.9 (3.3-5.1) mmol/L Chloride 106 (96-108) mmol/L Carbon Dioxide 27 (22-29) mmol/L Anion Gap 11 L (12-20) BUN 10 (9-16) mg/dL Creatinine 0.90 (0.5-1.4) mg/dL Estim Creat Clear Calc 86.3 Estimated GFR > 60 Random Glucose 102 (60-115) mg/dL Calcium 10.1 D (8.4-10.2) mg/dL Magnesium 2.2 (1.6-2.6) mg/dL Total Bilirubin 2.1 H (0.0-1.0) mg/dL Direct Bilirubin 0.5 (0.0-0.5) mg/dL AST 18 (5-37) U/L ALT 15 (0-40) U/L Alkaline Phosphatase 69 (39-117) U/L Total Protein 7.5 (6.5-8.0) g/dL Albumin 4.5 (3.5-5.0) g/dL Lipase 33 (8-78) U/L Urine Color Yellow Urine Appearance Cloudy Urine pH 6.5 (5.0-9.0) Ur Specific [place] 1.020 (1.005-1.025) Urine Protein 30 (1+) H (Neg-Trace) mg/dL Urine Glucose (UA) Negative (Negative) mg/dL Urine Ketones Negative (Negative) mg/dL Urine Blood Negative (Negative) Urine Nitrite Positive H (Negative) Ur Leukocyte Esterase Moderate (2+) H (Negative) Urine RBC 0-2 (0-2) /HPF Urine WBC 11-20 H (0-5) /HPF Ur Squamous Epith Cells 0-2 (0-2) /HPF Urine Bacteria 4+ (None Seen) Hyaline Casts 0-2 (0-2) /LPF Discharge Plan Discharge Clinical Impression: Acute pyelonephritis Patient Disposition: Admitted As Inpatient Interventions: Admission Worksheet (ED) Last Done: 05/20/25 21:23 Discharge Date/Time: 05/20/25 22:14
[2025-05-20 17:36] LABS: Appearance Urine Cloudy; Glucose Urine UA Negative (Negative); PH 6.5 (5.0-9.0); Specific Gravity - Urine 1.020 (1.005-1.025); UMIC TRIGGER UACC YES
[2025-05-20 17:49] LABS: UACC Culture Trigger YES
[2025-05-20 17:50] LABS: Alanine Aminotransferase 15 U/L (0-40); Albumin Level 4.5 g/dL (3.5-5.0); Alkaline Phosphatase 69 U/L (39-117); Anion Gap 11 (12-20); Aspartate Amino Transferase 18 U/L (5-37); Blood Urea Nitrogen 10 mg/dL (9-16); Calcium 10.1 mg/dL (8.4-10.2); Carbon Dioxide 27 mmol/L (22-29); Chloride 106 mmol/L (96-108); Creatinine Clr Calc Pharmacy 86.3; Estimated Glomerular Filt Rate > 60; Lipase 33 U/L (8-78); Magnesium 2.2 mg/dL (1.6-2.6); Potassium 3.9 mmol/L (3.3-5.1); Sodium 140 mmol/L (135-145); Total Protein 7.5 g/dL (6.5-8.0)
[2025-05-20 17:52] LABS: Hematocrit 43.4 % (42.0-52.0); Hemoglobin 14.6 g/dl (14.0-18.0); Imm Gran Abs Auto 0.08 X10*3/uL (0.00-0.03); Imm Gran Pct Auto 0.5 % (0.0-0.4); Lymphocytes Absolute Auto 2.3 X10*3/uL (1.2-4.9); MANUAL DIFF FLAG SCAN; Mean Corpuscular HGB Conc 33.6 g/dl (31.0-36.0); Mean Corpuscular Hemoglobin 29.1 pg (27.0-33.0); Mean Corpuscular Volume 86.6 fL (80.0-98.0); NRBC Abs Auto 0.000 X10*3/uL (0.0-0.012); NRBC Pct Auto 0.0 /100WBC (0.0-0.2); Platelet Count 320 X10*3/uL (160-400); Red Blood Count 5.01 X10*6/uL (4.60-5.80); SCAN SMEAR FLAG 1; White Blood Count 16.9 X10*3/uL (4.8-10.8)
--- OUTSIDE RECORDS SUMMARY | 2025-05-20 19:33 | XMS_ITS | Clinical Summary ---
Author Organization [facility] [employer] 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
[2025-05-20 19:40] VITALS: BP 113/71; PULSE 72; RESP 18; O2SAT 98
--- NOTE | 2025-05-20 21:17 | PHA.MEDREC ---
Pharmacy Consult ? Medication Reconciliation Pharmacy has completed the medication reconciliation.Med rec complete, spoke to patient and compared with pharmacy claims history
--- NOTE | 2025-05-20 22:13 | P.HPHOSP_ITS ---
History of Present Illness Date of Service: 05/20/25 Chief Complaint: Fever, difficulty urinating, back pain 50 year old male with a medical history significant for recurrent nephrolithiasis requiring lithotripsy, recurrent urinary tract infections with ESBL E. coli (02/24 and 10/24, sensitive to ertapenem), presenting with 2 days of difficulty urinating associated with flank and lower extremity discomfort, chills and fever worse at night. Pain and fever improved with ibuprofen. Hematuria was not present. He was evaluated by Urology as an outpatient and started on vitamin C and methenamine. In the emergency department, he was treated symptomatically with ibuprofen with improvement in pain and fever. Vitals: BP range 102?130/66?79, HR range 61?91, RR 18, O2 sat 96?98% on room air, afebrile. DIAGNOSTIC STUDIES: Labs: WBC 16.9 (elevated). CMP within normal limits except total bilirubin 2.1 (prior values 1.2 in 09/2024 and 1.5 in 01/2025) Urinalysis: positive nitrite, leukocyte esterase, WBCs, bacteria, and protein. Renal ultrasound: Right interpolar region nonobstructing subcentimeter nephroliths. [facility] Medical History Pure hypercholesterolemia Hemorrhoids UTI (urinary tract infection) Family History Other Mental health disorder Surgical History History of lithotripsy History of tooth extraction Social History Household Members: Spouse Housing: House Do you presently have visiting nurse or other home services: No Alcohol intake: current Alcohol intake frequency: does not drink Patient Tobacco Use Status: Never used Tobacco Smoked in Last 30 Days: No e-Cigarette/Vaping Use: Never Used Second Hand Smoke Exposure: No Use of substances other than those prescribed or required for medical reasons: No Substance Use Type: Marijuana Do you feel safe in your current relationship?: Yes Is there a partner from a previous relationship who is making you feel unsafe now?: No Are you made to feel afraid or neglected: No Advance Directives: No Advance Directives Information Provided: No Do you have a plan to hurt others: No Plan Recently lost weight without trying: No Nutrition Risks: No Nutritional Risk Poor oral hygiene: No service: No Current occupational status: employed Cognitive needs: No Hearing needs: No Vision needs: Yes (Glasses) Meds Allergies Allergy/AdvReac Type Severity Reaction Status Date / Time No Known Allergies Allergy Verified 05/20/25 16:26 Active Medications: Current Medications Acetaminophen (Acetaminophen 325 Mg Tablet) 650 mg PO Q6H PRN PRN Reason: Pain, Mild 1-3,fever,headache Calcium Carbonate (Calcium Carbonate 750 Mg Tab.Chew) 750 mg PO Q4H PRN PRN Reason: Heartburn Enoxaparin Sodium (Enoxaparin Sodium 40 Mg/0.4 Ml Syringe) 40 mg SUBCUT Q24H [facility] Ertapenem 1 gm/ Sodium (Chloride) 50 mls @ 100 mls/hr IV ONCE ONE Stop: 05/21/25 21:29 Magnesium Hydroxide (Milk Of Magnesia 30 Ml Oral.Susp) 30 ml PO DAILY PRN PRN Reason: Constipation Melatonin (Melatonin 3 Mg Tablet) 6 mg PO BEDTIME PRN PRN Reason: Insomnia Ondansetron HCl (Ondansetron Hcl 4 Mg/2 Ml Vial) 4 mg IVPUSH Q8H PRN PRN Reason: Nausea and Vomiting Sodium Chloride (0.9 % Sodium Chloride Flush 3 Ml Syringe) 3 ml IVFLUSH QSHIFT [facility] Physical Exam 2 Vital Signs and Narrative: Vital Signs: Last Vital Signs Temp 98.5 F 05/20/25 16:23 Pulse 72 05/20/25 19:40 Resp 18 05/20/25 19:40 BP 113/71 05/20/25 19:40 Pulse Ox 98 05/20/25 19:40 O2 Del Method Room Air 05/20/25 19:40 BMI result Body Mass Index 25.6 General: Alert, oriented, in no acute distress and cooperative. Afebrile. Heart: RRR Lungs: CTABL. No wheezes, rales, or rhonchi. Normal respiratory effort. Abdomen: Soft, non tenderness, nondistended, normoactive bowel sounds Genitourinary: No flank tenderness Skin: Warm/Dry. No pallor. No jaundice Results Labs 05/20/25 17:22 12/19/25 17:22 Labs: Laboratory Results - last 24 hr 05/20/25 05/20/25 17:22 17:26 MCV 86.6 MCH 29.1 MCHC 33.6 RDW 13.1 Plt Count 320 MPV 9.8 Immature Gran % (Auto) 0.5 H Neut % (Auto) 75.2 H Lymph % (Auto) 13.5 L [place] % (Auto) 9.5 Eos % (Auto) 0.8 Baso % (Auto) 0.5 Lymph # (Auto) 2.3 [place] # (Auto) 1.6 H Eos # (Auto) 0.1 Baso # (Auto) 0.1 Abs Immat Gran (auto) 0.08 H Absolute Neuts (auto) 12.7 H Absolute Nucleated RBC 0.000 Nucleated RBC % (auto) 0.0 Smear Tech's Comments VERIFIED Anion Gap 11 L Estim Creat Clear Calc 86.3 Estimated GFR > 60 Random Glucose 102 Calcium 10.1 D Magnesium 2.2 Total Bilirubin 2.1 H Direct Bilirubin 0.5 AST 18 ALT 15 Alkaline Phosphatase 69 Total Protein 7.5 Albumin 4.5 Lipase 33 Urine Color Yellow Urine Appearance Cloudy Urine pH 6.5 Ur Specific [place] 1.020 Urine Protein 30 (1+) H Urine Glucose (UA) Negative Urine Ketones Negative Urine Blood Negative Urine Nitrite Positive H Ur Leukocyte Esterase Moderate (2+) H Urine RBC 0-2 Urine WBC 11-20 H Ur Squamous Epith Cells 0-2 Urine Bacteria 4+ Hyaline Casts 0-2 Assessment and Plan (1) Acute pyelonephritis: Status: Acute (2) Urinary tract infection due to extended-spectrum beta lactamase (ESBL) producing Escherichia coli: Status: Acute Plan 50 year old male with recurrent UTIs and nephrolithiasis presenting with dysuria/urinary difficulty, flank pain, fever, leukocytosis, and infected urinalysis, most consistent with recurrent pyelonephritis without current hemodynamic instability. Acute pyelonephritis, with recurrent ESBL infection only susceptible to ertapenem. Sepsis not present on admission -Ertapenem IV ordered -Infectious disease consulted -Urine and blood cultures pending -Urine chlamydia pending -ibuprofen for pain and fever -CBC ordered for a.m. -Urology consulted Hyperbilirubinemia: Transaminases within normal limits. -Repeat pending for a.m. Medication reconciled. Healthcare proxy: Irma, spouse Life-sustaining treatment preferences: Full code VTE prophylaxis: SCD and Lovenox Patient will need hospitalization for at least 2 midnights for UTI due to ESBL which require IV antibiotic therapy and evaluation by Infectious Disease specialist. Total time managing care of this patient today: 75 minutes. Quality Stroke Does the patient have a stroke diagnosis?: No VTE Prior VTE?: No VTE Risk Level:: Medical - moderate - high VTE Device Contraindication: N/A - Device Ordered VTE Drug Contraindication: N/A - Med Ordered
[2025-05-20 22:19] VITALS: BMI 26.0
[2025-05-20 22:27] VITALS: BP 130/72; PULSE 61; RESP 18; TEMP 36.6; O2SAT 96
[2025-05-20] MEDS: 0.9 % Sodium Chloride Flush 3 ML SYRINGE IVFLUSH (23:20)
[2025-05-20 23:25] VITALS: BP 110/56; PULSE 74; RESP 16; TEMP 37.1; O2SAT 96
[2025-05-21 03:51] VITALS: BP 106/63; PULSE 63; RESP 16; TEMP 36.6; O2SAT 98
[2025-05-21 06:28] LABS: MANUAL DIFF FLAG NO
[2025-05-21 06:32] LABS: Hematocrit 42.6 % (42.0-52.0); Hemoglobin 14.2 g/dl (14.0-18.0); Imm Gran Abs Auto 0.06 X10*3/uL (0.00-0.03); Imm Gran Pct Auto 0.5 % (0.0-0.4); Lymphocytes Absolute Auto 2.0 X10*3/uL (1.2-4.9); Mean Corpuscular HGB Conc 33.3 g/dl (31.0-36.0); Mean Corpuscular Hemoglobin 28.9 pg (27.0-33.0); Mean Corpuscular Volume 86.6 fL (80.0-98.0); NRBC Abs Auto 0.000 X10*3/uL (0.0-0.012); NRBC Pct Auto 0.0 /100WBC (0.0-0.2); Platelet Count 308 X10*3/uL (160-400); Red Blood Count 4.92 X10*6/uL (4.60-5.80); White Blood Count 11.9 X10*3/uL (4.8-10.8)
[2025-05-21 06:52] LABS: Anion Gap 14 (12-20); Blood Urea Nitrogen 9 mg/dL (9-16); Calcium 9.3 mg/dL (8.4-10.2); Carbon Dioxide 22 mmol/L (22-29); Chloride 109 mmol/L (96-108); Creatinine Clr Calc Pharmacy 95.9; Estimated Glomerular Filt Rate > 60; Potassium 3.7 mmol/L (3.3-5.1); Sodium 141 mmol/L (135-145)
[2025-05-21 07:49] VITALS: BP 106/66; PULSE 62; RESP 16; TEMP 36.9; O2SAT 97
--- NOTE | 2025-05-21 08:44 | P.PNIM_ITS ---
Subjective Subjective Date of Service: 05/21/25 Interval History: Patient seen examined at bedside this morning, patient recently admitted for pyelonephritis, mentioned that his pain has improved. With past urine culture positive for ESBL E coli. Review of Systems Review of Systems: Yes all other systems are reviewed and are negative Physical Exam 2 Exam: Exam: General: AxOx3, No acute distress Head: AT/NC ENT: Moist mucous membranes Neck: supple CVS; RRR, S1 S2 normal Lungs: Clear bilateral breath sounds, no wheezes or crackles Abd: Soft non tender, non distended Ext: No edema and no calf tenderness MSK: moving all 4 limbs, CVA tenderness Skin: No cyanosis or edema Psych: Cooperative with exam Neurology: no focal deficit Vital Signs: Vital Signs: Last Vital Signs Temp 98.4 F 05/21/25 07:49 Pulse 62 05/21/25 07:49 Resp 16 05/21/25 07:49 BP 106/66 05/21/25 07:49 Pulse Ox 97 05/21/25 07:49 O2 Del Method Room Air 05/21/25 07:49 BMI result Body Mass Index 26.0 Objective Data Active Medications Acetaminophen (Acetaminophen 325 Mg Tablet) 650 mg PO Q6H PRN PRN Reason: Pain, Mild 1-3,fever,headache Calcium Carbonate (Calcium Carbonate 750 Mg Tab.Chew) 750 mg PO Q4H PRN PRN Reason: Heartburn Enoxaparin Sodium (Enoxaparin Sodium 40 Mg/0.4 Ml Syringe) 40 mg SUBCUT Q24H [facility] Last Admin: 05/20/25 23:18 Dose: 40 mg Documented By: ANANDA Ertapenem 1 gm/ Sodium (Chloride) 50 mls @ 100 mls/hr IV ONCE ONE Stop: 05/21/25 21:29 Ibuprofen (Ibuprofen 600 Mg Tablet) 600 mg PO Q6H PRN PRN Reason: Pain, Mild 1-3,fever,headache Magnesium Hydroxide (Milk Of Magnesia 30 Ml Oral.Susp) 30 ml PO DAILY PRN PRN Reason: Constipation Melatonin (Melatonin 3 Mg Tablet) 6 mg PO BEDTIME PRN PRN Reason: Insomnia Ondansetron HCl (Ondansetron Hcl 4 Mg/2 Ml Vial) 4 mg IVPUSH Q8H PRN PRN Reason: Nausea and Vomiting Sodium Chloride (0.9 % Sodium Chloride Flush 3 Ml Syringe) 3 ml IVFLUSH QSHIFT [facility] Last Admin: 05/20/25 23:20 Dose: 3 ml Documented By: ANANDA Labs 05/21/25 06:12 05/21/25 06:11 Labs: Laboratory Results - last 24 hr 05/20/25 05/20/25 05/21/25 17:22 17:26 06:11 MCV 86.6 MCH 29.1 MCHC 33.6 RDW 13.1 Plt Count 320 MPV 9.8 Immature Gran % (Auto) 0.5 H Neut % (Auto) 75.2 H Lymph % (Auto) 13.5 L [place] % (Auto) 9.5 Eos % (Auto) 0.8 Baso % (Auto) 0.5 Lymph # (Auto) 2.3 [place] # (Auto) 1.6 H Eos # (Auto) 0.1 Baso # (Auto) 0.1 Abs Immat Gran (auto) 0.08 H Absolute Neuts (auto) 12.7 H Absolute Nucleated RBC 0.000 Nucleated RBC % (auto) 0.0 Smear Tech's Comments VERIFIED Anion Gap 11 L 14 Estim Creat Clear Calc 86.3 95.9 Estimated GFR > 60 > 60 Random Glucose 102 101 Calcium 10.1 D 9.3 D Magnesium 2.2 Total Bilirubin 2.1 H 1.2 H Direct Bilirubin 0.5 AST 18 ALT 15 Alkaline Phosphatase 69 Total Protein 7.5 Albumin 4.5 Lipase 33 Urine Color Yellow Urine Appearance Cloudy Urine pH 6.5 Ur Specific [place] 1.020 Urine Protein 30 (1+) H Urine Glucose (UA) Negative Urine Ketones Negative Urine Blood Negative Urine Nitrite Positive H Ur Leukocyte Esterase Moderate (2+) H Urine RBC 0-2 Urine WBC 11-20 H Ur Squamous Epith Cells 0-2 Urine Bacteria 4+ Hyaline Casts 0-2 05/21/25 06:12 MCV 86.6 MCH 28.9 MCHC 33.3 RDW 12.9 Plt Count 308 MPV 9.7 Immature Gran % (Auto) 0.5 H Neut % (Auto) 69.6 Lymph % (Auto) 16.3 L [place] % (Auto) 10.7 Eos % (Auto) 2.3 Baso % (Auto) 0.6 Lymph # (Auto) 2.0 [place] # (Auto) 1.3 H Eos # (Auto) 0.3 Baso # (Auto) 0.1 Abs Immat Gran (auto) 0.06 H Absolute Neuts (auto) 8.3 Absolute Nucleated RBC 0.000 Nucleated RBC % (auto) 0.0 Smear Tech's Comments Anion Gap Estim Creat Clear Calc Estimated GFR Random Glucose Calcium Magnesium Total Bilirubin Direct Bilirubin AST ALT Alkaline Phosphatase Total Protein Albumin Lipase Urine Color Urine Appearance Urine pH Ur Specific [place] Urine Protein Urine Glucose (UA) Urine Ketones Urine Blood Urine Nitrite Ur Leukocyte Esterase Urine RBC Urine WBC Ur Squamous Epith Cells Urine Bacteria Hyaline Casts Assessment and Plan (1) Urinary tract infection due to extended-spectrum beta lactamase (ESBL) producing Escherichia coli: Status: Acute Plan 50 year old male with recurrent UTIs and nephrolithiasis presenting with dysuria/urinary difficulty, flank pain, fever, leukocytosis, and infected urinalysis, most consistent with recurrent pyelonephritis without current hemodynamic instability. Acute pyelonephritis, with history of recurrent ESBL infection susceptible to carbapenems Leukocytosis, likely secondary to above, improving -Labs reviewed -US showing nephrolithiasis on right kidney measuring 0.5cm -Urine and blood cultures ordered and pending -initiate LR at 100mml/hr -s/p IV ertapenem, will switch to meropenem at this time -Initiate Tamsulosin 0.4mg and ketorolac -Urology and ID consulted -ESBL precautions -monitor for any signs of worsening fevers, hypotension FEN: LR, replete as needed, regular GI PPx: NI DVT PPx: SCDs/ Lovenox Code Status: Full Code Total time managing care of this patient today: 45 minutes. Quality Stroke Does the patient have a stroke diagnosis?: No VTE Prior VTE?: No VTE Risk Level:: Medical - moderate - high VTE Device Contraindication: N/A - Device Ordered VTE Drug Contraindication: N/A - Med Ordered
[2025-05-21 11:25] VITALS: BP 110/62; PULSE 62; RESP 16; TEMP 36.7; O2SAT 97
[2025-05-21] MEDS: Lactated Ringers 1,000 ML 100 ML IVCONT (12:58)
[2025-05-21 15:01] VITALS: BP 123/69; PULSE 72; RESP 16; TEMP 36.8; O2SAT 98
--- NOTE | 2025-05-21 16:12 | MHC.CM.PN ---
PT REPORTS HE LIVES ALONE AND IS INDEPENDENT WITH CARE DOES NOT USE DME OR SERVICES HCP ON FILE AND VERIFIED PCP: WERO SANCHEZ DCP: HOME VIA PRIVATE TRANSPORT
[2025-05-21 19:43] VITALS: BP 104/60; PULSE 60; RESP 16; TEMP 36.8; O2SAT 96
[2025-05-21 23:56] VITALS: BP 109/67; PULSE 73; RESP 16; TEMP 37.1; O2SAT 97
[2025-05-22] MEDS: Lactated Ringers 1,000 ML 100 ML IVCONT ×3 (00:01→22:01)
[2025-05-22 03:25] VITALS: BP 107/69; PULSE 63; RESP 16; TEMP 36.8; O2SAT 98
[2025-05-22 07:20] VITALS: BP 105/59; PULSE 61; RESP 18; TEMP 36.1; O2SAT 98
--- NOTE | 2025-05-22 09:00 | P.CNUR_ITS ---
History of Present Illness Consult details Consult date: 05/23/25 Narrative: 50 year old male with a medical history significant for recurrent nephrolithiasis requiring lithotripsy, recurrent urinary tract infections with ESBL E. coli (02/24 and 10/24, sensitive to ertapenem), presented with recurrent pyelonephritis. Review of Systems 2 Review of Systems: Yes all other systems are reviewed and are negative Constitutional: Constitutional: Reports no additional constitutional complaints Eyes: Eyes: Reports no additional eye complaints ENT: Reports system reviewed and no additional complaints, except as documented Cardiovascular: Cardiovascular: Reports no additional cardiovascular complaints Respiratory: Respiratory: Reports no additional respiratory complaints Gastrointestinal: Gastrointestinal: Reports no additional gastrointestinal complaints Genitourinary: Genitourinary: Reports as per HPI Musculoskeletal: Musculoskeletal: Reports no additional musculoskeletal complaints Integumentary/Breasts: Skin/Breast: Reports system reviewed and no additional complaints, except as docu Neurologic: Reports system reviewed and no additional complaints, except as documented Psychiatric: Psychiatric: Reports no additional psychiatric complaints Endocrine: Endocrine: Reports no additional endocrine complaints Hematologic/Lymphatic: Hematologic/Lymphatic: Reports no additional hematologic/lymphatic complaints Allergic/Immunologic: Allergic/Immunologic: Reports no additional allergic/immunologic complaints [facility] Past Medical History Medical History Pure hypercholesterolemia Hemorrhoids UTI (urinary tract infection) Family History Family History Other Mental health disorder Surgical History Surgical History History of lithotripsy History of tooth extraction Social History Social History Household Members: Spouse Housing: House Do you presently have visiting nurse or other home services: No Alcohol intake: current Alcohol intake frequency: does not drink Patient Tobacco Use Status: Never used Tobacco Smoked in Last 30 Days: No e-Cigarette/Vaping Use: Never Used Second Hand Smoke Exposure: No Use of substances other than those prescribed or required for medical reasons: No Substance Use Type: Marijuana Currently Displaying Signs/Symptoms of Drug Intoxication Withdrawal: No Do you feel safe in your current relationship?: Yes Is there a partner from a previous relationship who is making you feel unsafe now?: No Are you made to feel afraid or neglected: No Advance Directives: No Advance Directives Information Provided: No Do you have a plan to hurt others: No Plan Recently lost weight without trying: No Nutrition Risks: No Nutritional Risk Poor oral hygiene: No service: No Current occupational status: employed Cognitive needs: No Hearing needs: No Vision needs: Yes (Glasses) Meds Allergies Allergy/AdvReac Type Severity Reaction Status Date / Time No Known Allergies Allergy Verified 05/20/25 16:26 Active Medications: Current Medications Acetaminophen (Acetaminophen 325 Mg Tablet) 650 mg PO Q6H PRN PRN Reason: Pain, Mild 1-3,fever,headache Calcium Carbonate (Calcium Carbonate 750 Mg Tab.Chew) 750 mg PO Q4H PRN PRN Reason: Heartburn Enoxaparin Sodium (Enoxaparin Sodium 40 Mg/0.4 Ml Syringe) 40 mg SUBCUT Q24H [facility] Last Admin: 05/21/25 22:34 Dose: 40 mg Lactated Ringer's (Lr) 1,000 mls @ 100 mls/hr IVCONT .Q10H [facility] Last Admin: 05/22/25 00:01 Dose: 100 mls/hr Ketorolac Tromethamine (Ketorolac Tromethamine 10 Mg Tablet) 10 mg PO Q6H PRN PRN Reason: Pain, Moderate(Pain Scale 4-6) Stop: 05/26/25 12:13 Magnesium Hydroxide (Milk Of Magnesia 30 Ml Oral.Susp) 30 ml PO DAILY PRN PRN Reason: Constipation Melatonin (Melatonin 3 Mg Tablet) 6 mg PO BEDTIME PRN PRN Reason: Insomnia Meropenem (Meropenem 500 Mg Vial) 500 mg IVPUSH Q8H [facility] Last Admin: 05/22/25 04:44 Dose: 500 mg Ondansetron HCl (Ondansetron Hcl 4 Mg/2 Ml Vial) 4 mg IVPUSH Q8H PRN PRN Reason: Nausea and Vomiting Sodium Chloride (0.9 % Sodium Chloride Flush 3 Ml Syringe) 3 ml IVFLUSH QSHIFT [facility] Last Admin: 05/22/25 07:36 Dose: Not Given Tamsulosin HCl (Tamsulosin Hcl 0.4 Mg Capsule) 0.4 mg PO BEDTIME [facility] Last Admin: 05/21/25 20:58 Dose: 0.4 mg Physical Exam 2 Vital Signs: Vital Signs: Last Vital Signs Temp 96.9 F 05/22/25 07:20 Pulse 61 05/22/25 07:20 Resp 18 05/22/25 07:20 BP 105/59 L 05/22/25 07:20 Pulse Ox 98 05/22/25 07:20 O2 Del Method Room Air 05/22/25 07:20 BMI result Body Mass Index 26.0 Const: General: healthy appearing, no acute distress and well developed O rientation/consciousness: patient oriented x3 HEENT: Head: Yes normocephalic and Yes atraumatic Eyes: Conjunctivae: conjunctivae normal Neck: Neck: Yes normal visual inspection Chest: Chest palpation & inspection: normal inspection of the chest Resp: Effort & Inspection: normal respiratory effort GI: Inspection: Yes normal to inspection Neuro: General: patient oriented x3 Psych: Appearance: grossly normal Affect: normal affect Results Labs 05/21/25 06:12 05/21/25 06:11 Labs: Urine 05/20/25 Range/Units 17:26 Urine Color Yellow Urine Appearance Cloudy Urine pH 6.5 (5.0-9.0) Ur Specific [place] 1.020 (1.005-1.025) Urine Protein 30 (1+) H (Neg-Trace) mg/dL Urine Glucose (UA) Negative (Negative) mg/dL All other labs normal. Imaging Abdomen CT scan report/results: report reviewed and image reviewed CT scan - pelvis: report reviewed and image reviewed US - kidney/bladder: report reviewed and image reviewed Additional studies: Collected: 05/20/25 Status: COMP Req#: [id number] Received: 05/20/25 Source: [facility] Sp Desc: Subm Dr: Maureen Hernandez Ordered: Urine Culture Procedure Result Verified Urine Culture Final 05/23/25 Organism 1 Escherichia coli Quant > 100,000 cfu/mL ESBL Note: NOTE: Extended-Spectrum Beta-Lactamase enzyme present E coli M.I.C. RX --------- --- Ampicillin >=32 R Cefazolin (Urine) >=32 R Cefepime 16 R Ceftriaxone >=64 R Ciprofloxacin 0.5 I Ertapenem <=0.12 S Gentamicin >=16 R Nitrofurantoin <=16 S Trimethoprim/Sulfamethoxazole >=320 R Date of Service: 05/20/25 US Renal Comparison: None provided Findings: Right kidney normal size and echotexture, 11.4 x 5.7 x 5.1 cm length. Interpolar region nonobstructing hyperechoic focus, 0.5 x 0.5 x 0.5 cm. Left kidney normal size and echotexture, 11 x 5.1 x 4.4 cm length. Upper pole cortical anechoic focus with posterior acoustic enhancement, 0.6 x 0.4 x 0.6 cm; simple cysts. No collecting system dilatation of either kidney. Normal color Doppler. The bladder is not imaged on present examination. IMPRESSION: Right interpolar region nonobstructing subcentimeter nephroliths. Date of Service: 02/16/25 Reason for Exam: ESBL UTI EXAMINATION: CT ABDOMEN AND PELVIS WITH CONTRAST CLINICAL INFORMATION: ESBL UTI COMPARISON: None available. TECHNIQUE: Multidetector volumetric images were obtained from the superior aspect of the liver through the pubic symphysis following administration 85 mL of Omnipaque 350 intravenous contrast. Sagittal and coronal reformatted images were obtained on the technologist's workstation. Oral contrast: No This CT examination was performed using dose optimization techniques as appropriate, variously including the following: *Automated exposure control *Adjustment of mA and/or kV according to patient size (this includes techniques or standardized protocols for targeted exams where dose is matched to indication/reason for exam; i.e. extremities or head) *Use of iterative reconstruction technique DLP: 331 mGy*cm FINDINGS: LUNG BASES: The visualized lung bases are unremarkable. LIVER, GALLBLADDER, AND BILIARY TREE: Liver demonstrates decreased attenuation uniformly. The gallbladder is unremarkable with no evidence of radiopaque gallstones, gallbladder wall thickening, or obvious pericholecystic inflammatory changes. PANCREAS: Unremarkable. SPLEEN: Unremarkable. ADRENAL GLANDS: Unremarkable. KIDNEYS AND URETERS: Several small low-attenuation lesions in the right kidney are probably simple renal cysts. There is a nonobstructing stone in the upper pole left kidney measuring 7 x 15 mm. There is no hydronephrosis. BLADDER: Unremarkable. GASTROINTESTINAL TRACT: The small and large bowel are unremarkable aside from a few pseudodiverticula in the sigmoid colon. The appendix is unremarkable. ABDOMINAL WALL: No significant hernia is appreciated. LYMPH NODES: Normal. VASCULAR: Unremarkable. PELVIC VISCERA: Unremarkable. OSSEOUS STRUCTURES: Moderate disc space narrowing with endplate osteophytes and vacuum phenomena is noted at L5-S1. IMPRESSION: Hepatic steatosis. 7 x 15 mm stone in the upper pole left kidney may represent a staghorn calculus. Other findings as above. Assessment and Plan (1) Staghorn calculus: Status: Acute (2) Pyelonephritis: Status: Acute (3) ESBL (extended spectrum beta-lactamase) producing bacteria infection: Status: Acute Plan prior c/s ESBL E. coli, on IV Merepenum, clinically improving, needs antibiotic therapy, no plans for surgical intervention for stone during this admission. Procedures Date of Service Date of Service: 05/23/25
--- NOTE | 2025-05-22 09:17 | HO.PM.IMPN ---
Subjective Subjective Date of Service: 05/22/25 Interval History: Patient seen examined at bedside this morning, and acute respiratory distress. Patient states that his pain has been improving, continues on IV antibiotics for ESBL E coli. Per Urology, given improvement, at this time no indication for surgical treatment at this time. Review of Systems Review of Systems: Yes all other systems are reviewed and are negative Physical Exam Exam: Exam: General: AxOx3, No acute distress Head: AT/NC ENT: Moist mucous membranes Neck: supple CVS; RRR, S1 S2 normal Lungs: Clear bilateral breath sounds, no wheezes or crackles Abd: Soft non tender, non distended Ext: No edema and no calf tenderness MSK: moving all 4 limbs, CVA tenderness, mild, improved Skin: No cyanosis or edema Psych: Cooperative with exam Neurology: no focal deficit Vital Signs: Vital Signs: Last Vital Signs Temp 96.9 F 05/22/25 07:20 Pulse 61 05/22/25 07:20 Resp 18 05/22/25 07:20 BP 105/59 L 05/22/25 07:20 Pulse Ox 98 05/22/25 07:20 O2 Del Method Room Air 05/22/25 07:20 BMI result Body Mass Index 26.0 Objective Data Active Medications Acetaminophen (Acetaminophen 325 Mg Tablet) 650 mg PO Q6H PRN PRN Reason: Pain, Mild 1-3,fever,headache Calcium Carbonate (Calcium Carbonate 750 Mg Tab.Chew) 750 mg PO Q4H PRN PRN Reason: Heartburn Enoxaparin Sodium (Enoxaparin Sodium 40 Mg/0.4 Ml Syringe) 40 mg SUBCUT Q24H [facility] Last Admin: 05/21/25 22:34 Dose: 40 mg Documented By: ANANDA Lactated Ringer's (Lr) 1,000 mls @ 100 mls/hr IVCONT .Q10H [facility] Last Admin: 05/22/25 00:01 Dose: 100 mls/hr Documented By: ANANDA Ketorolac Tromethamine (Ketorolac Tromethamine 10 Mg Tablet) 10 mg PO Q6H PRN PRN Reason: Pain, Moderate(Pain Scale 4-6) Stop: 05/26/25 12:13 Magnesium Hydroxide (Milk Of Magnesia 30 Ml Oral.Susp) 30 ml PO DAILY PRN PRN Reason: Constipation Melatonin (Melatonin 3 Mg Tablet) 6 mg PO BEDTIME PRN PRN Reason: Insomnia Meropenem (Meropenem 500 Mg Vial) 500 mg IVPUSH Q8H [facility] Last Admin: 05/22/25 04:44 Dose: 500 mg Documented By: ANANDA Ondansetron HCl (Ondansetron Hcl 4 Mg/2 Ml Vial) 4 mg IVPUSH Q8H PRN PRN Reason: Nausea and Vomiting Sodium Chloride (0.9 % Sodium Chloride Flush 3 Ml Syringe) 3 ml IVFLUSH QSHIFT [facility] Last Admin: 05/22/25 07:36 Dose: Not Given Documented By: NORMA Non-Admin Reason: IV Running Tamsulosin HCl (Tamsulosin Hcl 0.4 Mg Capsule) 0.4 mg PO BEDTIME [facility] Last Admin: 05/21/25 20:58 Dose: 0.4 mg Documented By: ANANDA Labs 05/21/25 06:12 05/21/25 06:11 Microbiology Microbiology Results: Microbiology 05/20/25 21:18 Blood Culture - Preliminary Blood - Venous No growth after 24 hours. 05/20/25 21:23 Blood Culture - Preliminary Blood - Venous No growth after 24 hours. 05/20/25 17:49 Urine Culture - Preliminary Urine clean catch Culture too young to evaluate. Assessment and Plan (1) Urinary tract infection due to extended-spectrum beta lactamase (ESBL) producing Escherichia coli: Status: Acute Plan 50 year old male with recurrent UTIs and nephrolithiasis presenting with dysuria/urinary difficulty, flank pain, fever, leukocytosis, and infected urinalysis, most consistent with recurrent pyelonephritis without current hemodynamic instability. Acute pyelonephritis, with history of recurrent ESBL infection susceptible to carbapenems Leukocytosis, likely secondary to above, improving -Labs reviewed -US showing nephrolithiasis on right kidney measuring 0.5cm -Urine and blood cultures ordered and pending -Continue LR at 100mml/hr -s/p IV ertapenem, continue meropenem for 7-10 total -Continue Tamsulosin 0.4mg and ketorolac -Urology and ID consulted -ESBL precautions -monitor for any signs of worsening fevers, hypotension FEN: LR, replete as needed, regular GI PPx: NI DVT PPx: SCDs/ Lovenox Code Status: Full Code Total time managing care of this patient today: 45 minutes. Quality Stroke Does the patient have a stroke diagnosis?: No VTE Prior VTE?: No VTE Risk Level:: Medical - moderate - high VTE Device Contraindication: N/A - Device Ordered VTE Drug Contraindication: N/A - Med Ordered
[2025-05-22 12:00] VITALS: BP 116/74; PULSE 75; RESP 18; TEMP 36.1; O2SAT 99
[2025-05-22 16:00] VITALS: BP 112/70; PULSE 68; RESP 18; TEMP 36.2; O2SAT 98
[2025-05-22] MEDS: 0.9 % Sodium Chloride Flush 3 ML SYRINGE IVFLUSH (19:51)
[2025-05-22 20:00] VITALS: BP 117/67; PULSE 65; RESP 18; TEMP 36.6; O2SAT 97
[2025-05-22 23:41] VITALS: BP 107/72; PULSE 55; RESP 16; TEMP 36.4; O2SAT 96
[2025-05-23 03:02] VITALS: BP 105/70; PULSE 62; RESP 14; TEMP 36.2; O2SAT 96
[2025-05-23 07:36] VITALS: BP 108/67; PULSE 58; RESP 16; TEMP 36.3; O2SAT 99
[2025-05-23] MEDS: 0.9 % Sodium Chloride Flush 3 ML SYRINGE IVFLUSH ×2 (07:50→17:10)
--- NOTE | 2025-05-23 11:45 | P.DS_ITS ---
DS: Providers Provider Date of admission: 05/20/25 21:00 Date of discharge: 05/23/25 Primary care physician: LOUISE Ayers Consults: 05/20/25 21:09 Consult to Infectious Diseases Routine Consulting Provider: [facility] Reason for consultation: ESBL recurrence Has provider been notified: No 05/20/25 21:35 Consult to Infectious Diseases Routine Consulting Provider: [facility] Reason for consultation: Pyelonephritis with history of ESBL EColi 05/20/25 22:47 Consult to Urology Routine Consulting Provider: [facility] Reason for consultation: Recurrent pyelonephritis DS: Diagnosis Discharge Diagnosis (1) Staghorn calculus: Status: Acute (2) Pyelonephritis: Status: Acute (3) ESBL (extended spectrum beta-lactamase) producing bacteria infection: Status: Acute DS: Summary Hospital Course Hospital Course: 50 year old male with recurrent UTIs and nephrolithiasis presenting with dysuria/urinary difficulty, flank pain, fever, leukocytosis, and infected urinalysis, most consistent with recurrent pyelonephritis. With imaging findings staghorn calculi. With urine culture growing ESBL E coli, sensitive to carbapenems. Seen by Urology suggested outpatient definitive stone treatment, to continue with IV antibiotics. Acute pyelonephritis, with history of recurrent ESBL infection susceptible to carbapenems, improving -Labs reviewed -US showing nephrolithiasis on right kidney measuring 0.5cm -Urine culture positive for ESBL E coli sensitive to carbapenems -we will transition from meropenem to ertapenem with EOT on 05/30 2 complete a total of 10 days -Continue Tamsulosin 0.4mg and ketorolac -Urology to follow up as an outpatient, likely scheduled for definitive stone treatment on 06/08/2025 -monitor for any signs of worsening fevers, hypotension Time Attestation Discharge Coordination Time (in mins): 35 minutes Quality: Safe Use of Opioids Does Pt have an Active Cancer Diagnosis on the Problem List?: No Quality: Stroke Does the patient have a stroke diagnosis?: No Physical Exam Exam: Exam: General: AxOx3, No acute distress Head: AT/NC ENT: Moist mucous membranes Neck: supple CVS; RRR, S1 S2 normal Lungs: Clear bilateral breath sounds, no wheezes or crackles Abd: Soft non tender, non distended Ext: No edema and no calf tenderness MSK: moving all 4 limbs Skin: No cyanosis or edema Psych: Cooperative with exam Neurology: no focal deficit Vital Signs: Vital Signs: Last Vital Signs Temp 97.4 F 05/23/25 07:36 Pulse 58 05/23/25 07:36 Resp 16 05/23/25 07:36 BP 108/67 05/23/25 07:36 Pulse Ox 99 05/23/25 07:36 O2 Del Method Room Air 05/23/25 07:36 BMI result Body Mass Index 26.0 DS: Data Data Completed and Pending Completed studies during hospitalization [Text1]: Procedures Insertion of Infusion Device into Right Basilic Vein, Percutaneous Approach (02/15/25) Labs on day of discharge: Preliminary micro results at discharge 05/20/25 21:18 Blood Culture - Preliminary Blood - Venous No growth after 48 hours. 05/20/25 21:23 Blood Culture - Preliminary Blood - Venous No growth after 48 hours. Discharge Plan Discharge Anticipated Discharge Date/Time: 05/23/25 13:00 Patient Disposition: Home Health Service Discharge Diagnosis: Pyelonephritis Staghorn calculus Referrals: Laura Mobley MD [Physician, Urology] - 2 Weeks Anthony Solano FNP-C [Primary Care Provider, Internal Medicine] - 1 Week Discharge Medications: New ketorolac 10 mg Tablet 10 mg PO Q6H PRN (Reason: Pain, Moderate(Pain Scale 4-6)) Qty: 15 0RF tamsulosin 0.4 mg Capsule 0.4 mg PO BEDTIME 10 Days Qty: 10 0RF ertapenem 1 gram recon soln 1 g IV DAILY 7 Days Continued ascorbic acid (vitamin C) 1,000 mg tablet 1,000 mg PO DAILY 90 Days Qty: 90 1RF ondansetron 4 mg tablet,disintegrating 4 mg PO Q8H PRN (Reason: nausea and vomiting) Qty: 10 0RF Discontinued methenamine hippurate 1 gram tablet 1 g PO DAILY 90 Days Qty: 90 1RF fosfomycin tromethamine 3 gram packet 1 packet PO Q48H Qty: 3 0RF Discharge Orders: Discharge Order (Routine); Ordered 05/23/25 Ordered By: Brian Cooper Activity on Discharge: As tolerated Stand Alone Forms: Patient Portal Discharge page Print Language: Bahraini Activity Restrictions/Additional Instructions: You had a reassuring kidney ultrasound there was a small stone but it was not obstructing. We feel you have a kidney infection/urinary tract infection call your urologist for follow up drink plenty of fluid to keep your urine dilute. T shalom the antibiotics as prescribed you can take ibuprofen as needed for pain Care Plan Goals: continue antibiotics for Urinary tract infection Follow up with Urology for definitive stone treatment Health Concerns: Urinary tract infection Staghorn Calculi Plan of Treatment: Continue Ertapenem for additional 7 days. Follow up with Urology on 06/08/2025 Assessment: 50 year old male with recurrent UTIs and nephrolithiasis presenting with dysuria/urinary difficulty, flank pain, fever, leukocytosis, and infected urinalysis, most consistent with recurrent pyelonephritis. With imaging findings staghorn calculi. With urine culture growing ESBL E coli, sensitive to carbapenems. Seen by Urology suggested outpatient definitive stone treatment, to continue with IV antibiotics. Patient Instructions: Urinary Tract Infection in Men (DC)
--- NOTE | 2025-05-23 11:46 | W.MHC.F2F ---
Service Date Service Date: 05/23/25 Encounter Date of encounter: 05/23/25 Reasons for Services Signs and symptoms assessed: Patient will require IV antibiotics for complicated UTI secondary to ESBL E coli. Reason for residential: administration of IV, SQ, or IM injection Homebound: Leaving the home is medically contraindicated at this time without the asist of a device and/or another person due th the listed conditions above and below. Reason homebound: other Certification: Based on the above findings, I certify that this patient is confined to the home and needs intermittent residential care, physical therapy and/or speech therapy, or continues to need occupational therapy. The patient is under my care, and I have initiated the establishment of the plan of care. The patient will be followed by a physician who will periodically review the plan of care. Time Spent With Patient Time: Total time managing care of this patient today ____ minutes.
[2025-05-23 11:48] VITALS: BP 113/69; PULSE 61; RESP 18; TEMP 36.7; O2SAT 98
--- NOTE | 2025-05-23 14:50 | HO.MIDLINE_ITS ---
Midline Insertion MIDLINE INSERTION Diagnosis: ESBL UTI Indication: Shelter Antibx Pertinent Labs: Reviewed Technique: Using sterile technique including cap and mask, glove and drape, the Right arm was prepped and draped in the usual sterile fashion of full barrier technique with CHG. Using ultrasound guidance, Right Brachial vein access was obtained by Dr Recinos due to difficult threading the wire. [id number] PowerGlide ST Midline Non-PASV was positioned. The procedure was performed in [facility]. Ultrasound was used to document vein patency and for needle entry. A formal ultrasound picture was recorded. Vascular Flight Crew Time Clerk has released the line for use and it is currently dressed with a StatLock, Tegaderm, and CHG disc. Verification has been performed for blood return and line patency. Arm Circumference: 29CM Equipment: Bard PowerGlide ST Midline Catheter Catheter Type: [id number] PowerGlide ST Midline Non-PASV Lot #: [id number]
[2025-05-23 15:52] VITALS: BP 113/72; PULSE 67; RESP 18; TEMP 36.8; O2SAT 99
--- NOTE | 2025-05-24 11:07 | P.CNID_ITS ---
History of Present Illness Data of Consult Service Date: 05/23/25 Requesting physician: Brian Cooper Primary Care Provider: LOUISE Ayers Reason for consult: ESBL bacteremia He presents with dysuria and bilateral flank pain for two days He has ESBL E coli isolated blood and urine. He has leukocytosis He feels improved. Review of Systems 2 Review of Systems: Yes all other systems are reviewed and are negative [facility] Past Medical History Medical History Pure hypercholesterolemia Hemorrhoids UTI (urinary tract infection) Family History Family History Other Mental health disorder Family history: reviewed and not pertinent Surgical History Surgical History History of lithotripsy History of tooth extraction Social History Social History Household Members: Spouse Housing: House Do you presently have visiting nurse or other home services: No Alcohol intake: current Alcohol intake frequency: does not drink Patient Tobacco Use Status: Never used Tobacco e-Cigarette/Vaping Use: Never Used Second Hand Smoke Exposure: No Substance Use Type: Marijuana service: No Current occupational status: employed Cognitive needs: No Hearing needs: No Vision needs: Yes (Glasses) Meds Allergies Allergy/AdvReac Type Severity Reaction Status Date / Time No Known Allergies Allergy Verified 05/20/25 16:26 Physical Exam 2 Vital Signs: Vital Signs: Last Vital Signs Temp 98.2 F 05/23/25 15:52 Pulse 67 05/23/25 15:52 Resp 18 05/23/25 15:52 BP 113/72 05/23/25 15:52 Pulse Ox 99 05/23/25 15:52 O2 Del Method Room Air 05/23/25 15:52 BMI result Body Mass Index 26.0 Const: General: cooperative HEENT: Head: Yes normal to inspection Face and sinus: Yes normal facial exam Mouth: Normal oral and palatal mucosa present Teeth and gingiva: d entition normal Eyes: General: appearance normal, both eyes and all related structures P upils: Equal, round and reactive pupils present Resp: Effort & Inspection: normal respiratory effort Cardio: Rate: regular rate Rhythm: regular rhythm GI: Palpation (GI): Soft to palpation and nontender : Other: bilateral flank pain General: Yes no CVA tenderness Back/Spine/Pelvis: Back: no CVA tenderness Skin: General skin exam: no rashes or lesions noted Neuro: General: moves all extremities Cranial nerves: Yes Equal, round and reactive pupils present Extrem: General: Yes normal to inspection Psych: Appearance: grossly normal Results Labs 05/21/25 06:12 05/21/25 06:11 Microbiology Microbiology Results: Microbiology 05/20/25 17:49 Urine clean catch Urine Culture - Final Escherichia coli 05/20/25 21:18 Blood - Venous Blood Culture - Preliminary No growth after 48 hours. 05/20/25 21:23 Blood - Venous Blood Culture - Preliminary No growth after 48 hours. Assessment and Plan (1) Nephrolithiasis: Status: Acute (2) Recurrent UTI (urinary tract infection): Status: Acute (3) Urinary tract infection due to extended-spectrum beta lactamase (ESBL) producing Escherichia coli: Status: Acute Plan He is improving Source of ESBL is probably nephrolithiasis and delayed bladder emptying Would continue Ertapenem for seven days Followup Urology outpatient.
== END 2025-05-23 17:16 | disposition home health service (06) | DRG 463 ==
LOC: HO.ED 20:42 → HO.EDOVER 21:04 → HO.S3 21:08
PROVIDERS: Physician Assistant; Admitting Provider Family Medicine; Emergency Provider Emergency Medicine; Visit Provider Student in an Organized Health Care Education/Training Program
DX: N10 Acute pyelonephritis (principal); B96.20 Unspecified Escherichia coli [E. coli] as the cause of diseases classified elsewhere; N20.0 Calculus of kidney; Z16.12 Extended spectrum beta lactamase (ESBL) resistance; Z87.440 Personal history of urinary (tract) infections; Z79.899 Other long term (current) drug therapy
CPT/HCPCS: 36410; 36415; 76775; 80048; 80076; 81001; 82247; 83690; 83735; 85025; 87040; 87086; 87088; 87186; 99285; J1335; J1650; J2185; J7120

== ENCOUNTER → 2025-05-20 16:26 | Outpatient (BNV) | payer OTHER, SELFPAY | PROVIDERS: Visit Provider Radiology Diagnostic Radiology | DX: N20.0 Calculus of kidney (principal) | CPT/HCPCS: 76775 ==

== ENCOUNTER → 2025-05-20 21:00 | Outpatient (BNV) | payer OTHER, SELFPAY | PROVIDERS: Admitting Provider Family Medicine; Emergency Provider Emergency Medicine; Visit Provider Urology | DX: N20.0 Calculus of kidney (principal); N12 Tubulo-interstitial nephritis, not specified as acute or chronic; A49.9 Bacterial infection, unspecified; Z16.12 Extended spectrum beta lactamase (ESBL) resistance | CPT/HCPCS: 99223 ==

== ENCOUNTER → 2025-05-20 21:00 | Outpatient (BNV) | payer OTHER, SELFPAY | PROVIDERS: Admitting Provider Family Medicine; Emergency Provider Emergency Medicine; Visit Provider Internal Medicine | DX: N20.0 Calculus of kidney (principal); N39.0 Urinary tract infection, site not specified; B96.29 Other Escherichia coli [E. coli] as the cause of diseases classified elsewhere; Z16.12 Extended spectrum beta lactamase (ESBL) resistance | CPT/HCPCS: 99222 ==

== ENCOUNTER 2025-05-30 09:51 | Outpatient (AMB) | payer OTHER, SELFPAY ==
--- NOTE | 2025-05-30 09:54 | MHC.OFFVIS ---
Intake Visit Reasons: H&P ESWL/UA/PVR(set) Intake Note: Reason for Visit: H&P ESWL/UA/PVR Urology Meds: Tamsulosin, Vitamin C (Methenamine Was D/C on 05/23) Blood Thinners: None Labs: BUN: 9 Creatinine: 0.81 (05/21/2025) Urine Culture: 05/20/2025 Imaging: Renal US 05/20/25 Last PVR: 0ml PVR: 0ml Interior Painter Required: No Accompanied by: Self / Same As Patient Allergies No Known Allergies Allergy (Verified 05/20/25 16:26) HPI Comments Details: 05/30/2025--laser is a 50-year-old male who has a left kidney stone and has had an episode UTI with ESBL E coli and pyelonephritis January 2025. He was in the emergency room again May an ultrasound was done showing the stone is unchanged in the left kidney. He was readmitted for pyelonephritis. He presents for further discussion on stone management. Discussed risks to include but not limited to, blood in the urine, bruising to the skin, kidney hematoma, possible need for another procedure if a stone fragment obstructs the ureter while passing, possible need to repeat procedure if stone is not completely fragmented. History of Present Illness The patient is a 50 year old male presenting for discussion on management for a left kidney stone. He has a history of a left kidney stone and had an episode of urinary tract infection with ESBL E. coli and pyelonephritis in January 2025. He subsequently visited the emergency room again in May. A CT scan on 02/16/25 identified a 7 x 15 mm upper pole left kidney stone. A subsequent ultrasound on 05/20/25 confirmed the stone was unchanged in the left kidney and also showed bilateral simple cysts. Due to the resistant E. coli which was only sensitive to ertapenem, he has been receiving IV antibiotics at home for pyelonephritis. He reports that today is the last day of his antibiotic treatment. Results - CT scan (02/16/25): Showed a 7 x 15 mm upper pole left kidney stone. - Ultrasound (05/20/25): Showed an echogenic focus in the upper pole of the left kidney, consistent with the known stone, along with bilateral simple cysts. - Microbiology: Culture identified ESBL E. coli sensitive only to ertapenem. Plan 1. Left Nephrolithiasis - The plan is to proceed with a left shockwave lithotripsy (SWL). - The procedure was explained as an outpatient, hospital-based intervention under anesthesia that uses external energy to break the stone into sand-like fragments for passage. - Potential outcomes and side effects were discussed, including the possibility of a fragment getting stuck which would require a secondary procedure, as well as expected hematuria and bruising in the kidney area. - The patient was advised that the procedure may need to be repeated if stone fragments remain. - He will receive antibiotics on the day of the procedure and was counseled to drink plenty of water afterward to help pass the fragments. - The SWL is scheduled for the first week of June. - Follow-up imaging with X-rays will be performed approximately one month post-procedure to assess for residual stones. 2. Pyelonephritis - The patient has been treated for pyelonephritis secondary to ESBL E. coli with IV ertapenem. - He confirmed he is on his last day of home IV antibiotics. - Prophylactic antibiotics will be administered on the day of his scheduled lithotripsy. 04/19/25--Meagan is a pleasant male. He is a patient of Dr. Solano. He is seen for the following urologic conditions - recurrent UTI - nephrolithiasis Urinary tract infection treated with ertapenem No diabetes ESBL E coli with pyelonephritis 02/24 Current UA shows positive leukocytes but otherwise negative CT scan with 15 mm left upper pole stone Start vitamin-C and methenamine Nephrolithiasis Recurrent Prior procedures including ureteroscopy and ESWL per patient history PFSH Medical History Pure hypercholesterolemia Hemorrhoids UTI (urinary tract infection) Surgical History History of lithotripsy History of tooth extraction Family History Other Mental health disorder Social History Household Members: Spouse Housing: House Do you presently have visiting nurse or other home services: No Alcohol intake: current Alcohol intake frequency: does not drink Patient Tobacco Use Status: Never used Tobacco e-Cigarette/Vaping Use: Never Used Second Hand Smoke Exposure: No Substance Use Type: Marijuana service: No Current occupational status: employed Cognitive needs: No Hearing needs: No Vision needs: Yes (Glasses) Review of Systems Const All systems reviewed & are unremarkable except as noted in HPI and below Reports no additional complaints Eyes Reports no additional complaints ENT Reports no additional complaints Card Reports no additional complaints Resp Reports no additional complaints GI Reports no additional complaints Reports as per HPI Musc Reports no additional complaints Skin/Breast Reports system reviewed and no additional complaints, except as documented Neuro Reports no additional complaints Psych Reports no additional complaints Endo Reports no additional complaints Gasper/Lymph Reports no additional complaints Aller/Immun Reports no additional complaints Office Procedures Post Void Residual Post Residual Void Post Void Residual (PVR): 0 39925-Plag Void Residual by ultrasound Results AMB Urinalysis, Automated UA Leukoctes 0 Hansel/uL Last Edit by Carolynn Bautista [facility] on 05/30/25 10:09 UA Nitrite Negative Last Edit by Carolynn Bautista [facility] on 05/30/25 10:09 UA Urobilinogen 0.2 mg/dL Last Edit by Carolynn Bautista A on 05/30/25 10:09 UA Protein 15 mg/dL Last Edit by Carolynn Bautista [facility] on 05/30/25 10:09 UA pH 6.0 Last Edit by Carolynn Bautista [facility] on 05/30/25 10:09 UA Blood 0 Hero/uL Last Edit by Carolynn Bautista A on 05/30/25 10:09 UA Specific [place] 1.025 Last Edit by Carolynn Bautista [facility] on 05/30/25 10:09 UA Ketone Negative Last Edit by Carolynn Bautista A on 05/30/25 10:09 UA Bilirubin 0 mg/dL Last Edit by Carolynn Bautista [facility] on 05/30/25 10:09 UA Glucose 0 mg/dL Last Edit by Carolynn Bautista [facility] on 05/30/25 10:09 Results Reviewed Results Reviewed: Laboratory Last Values Urine pH (Auto) 6.0 05/30/25 10:08 Specific [place] (Auto) 1.025 05/30/25 10:08 Urine Protein (Auto) 15 mg/dL 05/30/25 10:08 Glucose (UA)(Auto) 0 mg/dL 05/30/25 10:08 Urine Ketones (Auto) Negative 05/30/25 10:08 Urine Blood (Auto) 0 Hero/uL 05/30/25 10:08 Urine Nitrite (Auto) Negative 05/30/25 10:08 Urine Bilirubin (Auto) 0 mg/dL 05/30/25 10:08 Urine Urobilinogen (Auto) 0.2 mg/dL 05/30/25 10:08 Leukocyte Esterase (Auto) 0 Hansel/uL 05/30/25 10:08 Date of Service: 05/20/25 US Renal Comparison: None provided Findings: Right kidney normal size and echotexture, 11.4 x 5.7 x 5.1 cm length. Interpolar region nonobstructing hyperechoic focus, 0.5 x 0.5 x 0.5 cm. Left kidney normal size and echotexture, 11 x 5.1 x 4.4 cm length. Upper pole cortical anechoic focus with posterior acoustic enhancement, 0.6 x 0.4 x 0.6 cm; simple cysts. No collecting system dilatation of either kidney. Normal color Doppler. The bladder is not imaged on present examination. IMPRESSION: Right interpolar region nonobstructing subcentimeter nephroliths. Date of Service: 02/16/25 EXAMINATION: CT ABDOMEN AND PELVIS WITH CONTRAST CLINICAL INFORMATION: ESBL UTI COMPARISON: None available. TECHNIQUE: Multidetector volumetric images were obtained from the superior aspect of the liver through the pubic symphysis following administration 85 mL of Omnipaque 350 intravenous contrast. Sagittal and coronal reformatted images were obtained on the technologist's workstation. Oral contrast: No This CT examination was performed using dose optimization techniques as appropriate, variously including the following: *Automated exposure control *Adjustment of mA and/or kV according to patient size (this includes techniques or standardized protocols for targeted exams where dose is matched to indication/reason for exam; i.e. extremities or head) *Use of iterative reconstruction technique DLP: 331 mGy*cm FINDINGS: LUNG BASES: The visualized lung bases are unremarkable. LIVER, GALLBLADDER, AND BILIARY TREE: Liver demonstrates decreased attenuation uniformly. The gallbladder is unremarkable with no evidence of radiopaque gallstones, gallbladder wall thickening, or obvious pericholecystic inflammatory changes. PANCREAS: Unremarkable. SPLEEN: Unremarkable. ADRENAL GLANDS: Unremarkable. KIDNEYS AND URETERS: Several small low-attenuation lesions in the right kidney are probably simple renal cysts. There is a nonobstructing stone in the upper pole left kidney measuring 7 x 15 mm. There is no hydronephrosis. BLADDER: Unremarkable. GASTROINTESTINAL TRACT: The small and large bowel are unremarkable aside from a few pseudodiverticula in the sigmoid colon. The appendix is unremarkable. ABDOMINAL WALL: No significant hernia is appreciated. LYMPH NODES: Normal. VASCULAR: Unremarkable. PELVIC VISCERA: Unremarkable. OSSEOUS STRUCTURES: Moderate disc space narrowing with endplate osteophytes and vacuum phenomena is noted at L5-S1. IMPRESSION: Hepatic steatosis. 7 x 15 mm stone in the upper pole left kidney may represent a staghorn calculus. Moderate degenerative disc disease at L5-S1. Assessment & Plan Assessment & Plan Plan Left ESWL Orders: Orders AMB Urinalysis Automated Today Z13.9 - Encounter for screening, unspecified AMB Post Void Residual by ultrasound Today N39.0 - Urinary tract infection, site not specified, R31.9 - Hematuria, unspecified Patient Instructions: The patient had an opportunity to ask questions regarding treatment plan. The patient expressed understanding and agreement with the above treatment plan. The patient is aware they should contact our office by phone for worsening of their current condition or the appearance of new symptoms. Compliance is encouraged with any medications and followup testing that is ordered. It is a privilege to be allowed the opportunity to participate in the urologic care of your patient. If you have any questions or concerns regarding treatment for the above conditions please do not hesitate to contact me. The office telephone contact is [phone]. This note is constructed in part using voice recognition software. While every effort has been made to ensure accuracy community engagement representative errors may have been included. Yours sincerely, Laura Mobley MD Scribe Plan - Not visible on output: Patient was informed and verbally consented to the use of an ambient scribe for clinic note documentation during this visit. Coding CPT Codes Post Residual Void - PVR CPT Code: 91915-Mmdx Void Residual by ultrasound ([id number])
--- OUTSIDE RECORDS SUMMARY | 2025-05-30 10:38 | XMS_ITS | Clinical Summary ---
Author Organization [facility] [employer] [facility] ity Address [address] [place] [address] Care Team Providers Care Sample Maker Original Name Role Phone Unavailable Primary Care Provider [...]
== END 2025-05-30 16:37 | disposition home or self-care (01) ==
LOC: HO.HUSH 09:52
PROVIDERS: Visit Provider Urology
DX: Z13.9 Encounter for screening, unspecified (principal)

== ENCOUNTER 2025-05-31 08:56 | Outpatient (AMB) | payer OTHER, SELFPAY ==
--- NOTE | 2025-05-31 09:01 | MHC.PC.OV ---
Vital Signs 05/31/25 09:03 Height 5 ft 5 in Weight 155 lb BMI 25.8 BP 114/56 L Blood Pressure Location Lt brachial Position Sitting Respiration 18 Pulse 63 Pulse Source Pulse Oximeter Temp 97.7 F Temp Source Temporal Artery Scan Pulse Oximetry (%) 98 Oxygen Delivery Method Room Air Intake Visit Reasons: hld/ifg/elevated alt Records Technician Required: No Accompanied by: Self / Same As Patient Allergies No Known Allergies Allergy (Verified 05/31/25 09:02) Tobacco use date assessed: 11/29/24 Dental Screening Dental Screen Date: 11/29/24 HPI hld/ifg/elevated alt HPI Details The patient is a 50-year-old male presenting for HLD IFG, elevated ALT follow up. The patient was also recently treated in the hospital for acute pyelonephritis. The patient has a kidney stone that caused obstruction and led to the infection. Patient was treated with IV antibiotic inpatient and was discharged on IV ertapenem. Reports that he had his last treatment on Friday and his mid line was removed from right arm today. He reports that there was a mentioned that his prostate was significantly enlarged. There is no documentation noted in his note related to this information. Labs completed in the hospital reviewed. Patient has not completed preordered labs for this appointment, will add a PSA to further evaluate this concern. Patient reports that there is a plan to do a lithotripsy in the near future. Otherwise, the patient reports that he is feeling okay, denies shortness of breath, chest pain, dysuria, abdominal pain or change in bowel habits. [facility] Medical History Pure hypercholesterolemia Hemorrhoids UTI (urinary tract infection) Surgical History History of lithotripsy History of tooth extraction Family History Other Mental health disorder Social History Household Members: Spouse Housing: House Do you presently have visiting nurse or other home services: No Alcohol intake: current Alcohol intake frequency: does not drink Patient Tobacco Use Status: Never used Tobacco e-Cigarette/Vaping Use: Never Used Second Hand Smoke Exposure: No Substance Use Type: Marijuana service: No Current occupational status: employed Cognitive needs: No Hearing needs: No Vision needs: Yes (Glasses) Questionnaire PHQ-9 Over the last 2 weeks, how often have you been bothered by any of the following problems? Depression Screening Interpretation: Positive Depression Screening Done: Yes Source: Developed by Drs. Jamar Frazier, Peggy Fowler, Luciano Mitchell and colleagues, with an educational vianey from [employer]. Thrive Questionnaire Date Thrive assessed: 10/16/24 I am a: Patient What is your living situation today?: I have a steady place to live Within the past 12 months, did the food you bought not last and you didn't have the money to get more?: Often true Within the past 12 months, did you worry whether your food would run out before you got money to buy more?: Sometimes True Do you have trouble paying for medicines?: No Do you have trouble getting transportation to medical appointments?: No Do you have trouble paying your heating and electricity bill?: No Do you have trouble taking care of your child, family member or friend?: No Do you have trouble with day-to-day activities such as bathing, preparing meals, shopping, managing finances, etc.?: No Are you currently unemployed and looking for a job?: No Are you interested in more education?: No Currently or been in a relationship where the following occur: I choose not to answer THRIVE Score: 2 KINGSLEY-7 AMB Questionnaire KINGSLEY-7 Date KINGSLEY - 7 assessed: 11/29/24 Source: Developed by Drs. Jamar Frazier, Peggy Fowler, Luciano Mitchell and colleagues, with an educational vianey from [employer]. Review of Systems Const Denies headache(s) Eyes Denies loss of vision ENT Denies vertigo, Denies dizziness, Denies headache(s), Denies sore throat and Reports other (hx of oral cancer) Card Denies chest pain, Denies leg edema and Denies lightheadedness Resp Denies cough, Denies hemoptysis and Denies wheezing GI Denies abdominal pain, Denies melena, Reports constipation (has been improving), Reports heartburn (depending on what he eats), Denies diarrhea and Denies vomiting Denies dysuria, Denies urinary frequency and Denies urinary urgency Musc Denies arthralgias, Denies joint swelling, Denies numbness and Denies tingling Neuro Denies Abnormal speech present, Denies behavioral changes, Denies vertigo, Denies dizziness, Denies headache(s), Denies loss of vision, Denies memory loss, Denies numbness and Denies tingling Psych Denies anxiety, Denies behavioral changes, Denies depression, Denies memory loss and Denies panic attacks Gasper/Lymph Denies easy bleeding and Denies easy bruising Aller/Immun Denies wheezing Physical exam (Primary Care) Vital Signs: Last Vital Signs Temp 97.7 F 05/31/25 09:03 Pulse 63 05/31/25 09:03 Resp 18 05/31/25 09:03 BP 114/56 L 05/31/25 09:03 Pulse Ox 98 05/31/25 09:03 Oxygen Delivery Method Room Air 05/31/25 09:03 BMI result Body Mass Index 25.8 Tobacco/Smoking Status: Tobacco use Status Tobacco use date assessed 11/29/24 05/31/25 09:01 Patient Tobacco Use Status Never used Tobacco 05/31/25 09:01 e-Cigarette/Vaping Use Never Used 05/31/25 09:01 Depression Screening Interpretation: Positive Thrive Assessment: Date of Thrive Assessment Date Thrive assessed 10/16/24 05/31/25 09:01 Currently or been in a relationship where the following occur: I choose not to answer Const General: healthy appearing, no acute distress, alert and awake Nutritional Appearance: well nourished Orientation/consciousness: oriented to person, oriented to place and oriented to time [facility] Ears: TM's normal bilaterally General nose exam: Normal nasal mucous membranes and turbinates present Mouth: Normal oral and palatal mucosa present Teeth and gingiva: dentition normal Throat: Yes posterior oropharynx normal Eyes Conjunctivae: conjunctivae normal Sclerae: sclerae normal Pupils: Equal, round and reactive pupils present Neck Neck: Yes no lymphadenopathy and Yes no JVD Thyroid: Thyroid normal Carotids: no bruits Resp Effort & Inspection: normal respiratory effort and not tachypneic Auscultation: no crackles, no rales, no rhonchi and no wheezes Cardio Rate: regular rate Rhythm: regular rhythm Heart sounds: no murmurs and normal S1 and S2 GI Palpation (GI): Soft to palpation, nontender, no hepatomegaly and no splenomegaly Auscultation: normal bowel sounds General: Yes no CVA tenderness Back/Spine/Pelvis Back: no CVA tenderness Skin General skin exam: no rashes or lesions noted and dry skin Neuro General: oriented to person, oriented to place and oriented to time Cranial nerves: Yes CN's II-XII intact bilaterally and Yes Equal, round and reactive pupils present Speech: No Abnormal speech present Gait exam (Neuro): Normal gait present Motor exam (neuro): no tremor noted Extrem Right upper extremity: full ROM Left upper extremity: full ROM Right lower extremity: full ROM; no edema Left lower extremity: full ROM; no edema Psych Mental Status: mental status grossly normal Speech and movement: Normal speech and movement present Affect: normal affect Attitude: cooperative Thought process: Normal thought process present Coding Level of Care Code Est Pt Level 4 (31291) Diagnoses Acute pyelonephritis N10 Elevated ALT measurement R74.01 Impaired fasting glucose R73.01 Constipation, unspecified constipation type K59.00 Constipation type: unspecified constipation type Enlarged prostate N40.0 Nephrolithiasis N20.0 Hemorrhoids, unspecified hemorrhoid type K64.9 Hemorrhoid type: unspecified Pure hypercholesterolemia E78.00 H/O oral cancer Z85.819 Time Spent (min) 37 Assessment & Plan Assessment & Plan (1) Acute pyelonephritis: Code(s): N10 - Acute pyelonephritis Category: Medical Plan: The patient has a kidney stone in the left kidney that cause recent obstruction that led to pyelonephritis. The patient was treated in hospital with IV antibiotics and was discharged IV ertapenem. Completed last treatment on Friday and PICC line was removed today. He saw Urology yesterday, there was discussion of kidney stone management and lithotripsy in the future. Reports that he is doing well today and is completely asymptomatic. (2) Elevated ALT measurement: Code(s): R74.01 - Elevation of levels of liver transaminase levels Category: Medical Plan: Recent labs completed in the hospital showed normal ALT. History of fatty liver. Encouraged decreasing alcohol, Tylenol or medication containing Tylenol, fatty foods intake. We will continue to monitor (3) Impaired fasting glucose: Code(s): R73.01 - Impaired fasting glucose Category: Medical Plan: Random glucose in the hospital was 101 Reinforced low sugar/carbohydrate diet We will continue to monitor (4) Constipation: Code(s): K59.00 - Constipation, unspecified Category: Medical Qualifiers: Constipation type: unspecified constipation type Qualified Code(s): K59.00 - Constipation, unspecified Plan: Recurrent constipation. Reports that this has improved some. He declines MiraLax being added to his regimen,but will increase fluid intake. No abdominal pain on exam. (5) Enlarged prostate: Code(s): N40.0 - Benign prostatic hyperplasia without lower urinary tract symptoms Category: Medical Plan: Reports that he was told in the hospital that he has a an enlarged prostate. No documentation of this concern noted in the hospital note. PSA added to his preordered labs to further evaluate. (6) Nephrolithiasis: Code(s): N20.0 - Calculus of kidney Category: Medical Plan: Patient have kidney stone in the left kidney. Encouraged adequate hydration. Plans for lithotripsy in the future. Follow up with Urology as scheduled (7) Hemorrhoids: Code(s): K64.9 - Unspecified hemorrhoids Category: Medical Qualifiers: Hemorrhoid type: unspecified Qualified Code(s): K64.9 - Unspecified hemorrhoids Plan: Patient has a history of hemorrhoids. Intermittent rectal bleeding with straining. Patient has a pending GI appointment. Avoid sitting on toilet for an extended period of time. Avoid constipation. Increase fluids and fiber intake. (8) Pure hypercholesterolemia: Code(s): E78.00 - Pure hypercholesterolemia, unspecified Category: Medical Plan: Triglycerides 93, total cholesterol 180, LDL 117, HDL 45 previously-has not completed preordered labs as yet. Encouraged the patient to get this done as soon as possible Reinforced low-cholesterol diet Encouraged fish oil or coQ10 supplements We will recheck in six-month (9) H/O oral cancer: Code(s): Z85.819 - Personal history of malignant neoplasm of unspecified site of lip, oral cavity, and pharynx Category: Medical Plan: Patient reports a history of oral cancer. Reports that this was diagnosed roughly about 5 years ago. The lump/mass was removed b removed but it did not received chemotherapy. The patient was following up with [facility] and he has stopped going. Reports that he was told that his oral cancer was an aggressive type with a survivor rate of six-month. Reports that he was not concerned because because he has been he has been doing well doing without any issues. However, he would like to look into this to make sure everything is still okay. No lymph node noted on exam. No regrowth of mass noted. We will obtain the record for his oral cancer and see what the recommendations were and advise Plan Patient to follow up in six-month Orders: Orders PSA,Total (Free>4and<10) Today N40.0 - Benign prostatic hyperplasia without lower urinary tract symptoms
[2025-05-31 09:03] VITALS: BP 114/56; PULSE 63; RESP 18; TEMP 36.5; O2SAT 98; BMI 25.8
--- OUTSIDE RECORDS SUMMARY | 2025-05-31 11:04 | XMS_ITS | Clinical Summary ---
Author Organization [facility] ity Address [address] [place] [id number] Care Team Providers Care Chain Hooker Name Role Phone Unavailable Primary Care Provider [...]
== END 2025-05-31 10:50 | disposition home or self-care (01) ==
DX: N10 Acute pyelonephritis (principal); R74.01 Elevation of levels of liver transaminase levels; R73.01 Impaired fasting glucose; K59.00 Constipation, unspecified; N40.0 Benign prostatic hyperplasia without lower urinary tract symptoms; N20.0 Calculus of kidney; K64.9 Unspecified hemorrhoids; E78.00 Pure hypercholesterolemia, unspecified; Z85.819 Personal history of malignant neoplasm of unspecified site of lip, oral cavity, and pharynx

== ENCOUNTER → 2025-05-31 08:56 | Outpatient (BNVA) | payer OTHER, SELFPAY | DX: N10 Acute pyelonephritis (principal); R74.01 Elevation of levels of liver transaminase levels; R73.01 Impaired fasting glucose; K59.00 Constipation, unspecified; N40.0 Benign prostatic hyperplasia without lower urinary tract symptoms; N20.0 Calculus of kidney; K64.9 Unspecified hemorrhoids; E78.00 Pure hypercholesterolemia, unspecified; Z85.819 Personal history of malignant neoplasm of unspecified site of lip, oral cavity, and pharynx | CPT/HCPCS: 99212 ==